=== PATIENT | female | born 2000 | race Caucasian/White ===

== ENCOUNTER 2024-05-26 16:28 | Inpatient (IN) | payer BC ==
--- NOTE | 2024-05-26 17:13 | ED ---
General Adult HPI - General Source: patient, family Mode of arrival: ambulatory Limitations: no limitations <Gus Orourke - Last Filed: 05/27/24 19:06> <Ronel Angel - Last Filed: 06/18/24 23:58> - General Chief complaint: Neuro Symptoms/Deficit Stated complaint: double vision Time Seen by Provider: 05/26/24 17:12 - History of Present Illness Initial comments: 24-year-old female presenting with chief complaint of migraine and double vision. Patient has had a migraine ongoing for about a week. She was seen at [facility] and given a migraine cocktail. This helped diminish the pain but the migraine never completely went away. She was seen by her PCP today who referred her to ophthalmology. Ophthalmology reported that she had increased pressure surrounding her optic nerve and advised that she would be requiring an MRI. Patient has a double vision with both eyes open. She also mitts to blurry visio n. She denies any history of migraines. No fevers or chills. She is having some neck pain on the left side. No URI-like symptoms. (Gus Orourke) - Related Data Home Medications Medication Instructions Recorded Confirmed Cetirizine HCl [Zyrtec] 10 mg PO DAILY 05/27/24 05/27/24 Previous Rx's Medication Instructions Recorded Apixaban [Eliquis Starter Pack 5 - 10 mg PO DIRECTED 30 Days 05/30/24 (for VTE)] #1 each Allergies Allergy/AdvReac Type Severity Reaction Status Date / Time escitalopram [From Lexapro] Allergy Unknown Verified 05/27/24 12:57 Review of Systems ROS Other: All systems not noted in ROS Statement are negative. <Gus Orourke - Last Filed: 05/27/24 19:06> ROS Other: All systems not noted in ROS Statement are negative. <Ronel Angel - Last Filed: 06/18/24 23:58> ROS Statement: Those systems with pertinent positive or pertinent negative responses have been documented in the HPI. Past Medical History Past Medical History: No Reported History History of Any Multi-Drug Resistant Organisms: None Reported Past Surgical History: Tonsillectomy Past Psychological History: No Psychological Hx Reported Smoking Status: Never smoker Past Alcohol Use History: None Reported Past Drug Use History: None Reported <Gus Orourke - Last Filed: 05/27/24 19:06> General Exam Limitations: no limitations General appearance: alert, in no apparent distress Head exam: Present: atraumatic, normocephalic, normal inspection Eye exam: Present: normal appearance, PERRL, EOMI Expanded Visual acuity (R) = 20/: 40 Visual acuity (L) = 20/: 50 IOP (R) in mmH IOP (L) in mmH Neck exam: Present: normal inspection. Absent: meningismus Respiratory exam: Absent: respiratory distress Cardiovascular Exam: Present: regular rate Extremities exam: Present: normal inspection Neurological exam: Present: alert, oriented X3 Expanded Patient oriented to: Present: person, place, time Speech: Present: fluid speech Cranial nerves: EOM's Intact: Normal Eye Response: (4) open spontaneously Motor Response: (6) obeys commands Verbal Response: (5) oriented Chikis Total: 15 Psychiatric exam: Present: normal affect, normal mood Skin exam: Present: warm, dry <Gus Orourke - Last Filed: 05/27/24 19:06> - General Exam Comments Initial Comments: Visual Physical Exam Vital signs reviewed General: Well-appearing, nontoxic, no acute distress. Head: Normocephalic, atraumatic Eyes: PERRLA, EOMI ENT: Airway patent Chest: Nonlabored breathing Skin: No visual rash, normal skin tone Neuro: Alert and oriented 3 Musculoskeletal: No gross abnormalities (Gus Orourke) Course Vital Signs 05/26/24 05/26/24 16:55 18:38 Temperature 98 F Pulse Rate 68 70 Respiratory 18 18 Rate Blood Pressure 138/80 130/69 O2 Sat by Pulse 98 98 Oximetry Medical Decision Making - Lab Data Result diagrams: 05/26/24 18:06 05/26/24 18:06 <Gus Orourke - Last Filed: 05/27/24 19:06> - Lab Data Result diagrams: 05/31/24 06:10 05/31/24 06:10 <Ronel Angel - Last Filed: 06/18/24 23:58> - Medical Decision Making Was pt. sent in by a medical professional or institution (, PA, DINKEY MECHANIC, urgent care, hospital, or senior care...) When possible be specific @ -No Did you speak to anyone other than the patient for history (EMS, parent, family, police, friend...)? What history was obtained from this source @ -No Did you review nursing and triage notes (agree or disagree)? Why? @ -I reviewed and agree with nursing and triage notes Were old charts reviewed (outside hosp., previous admission, EMS record, old EKG, old radiological studies, urgent care reports/EKG's, senior care records)? Report findings @ -No old charts were reviewed Differential Diagnosis (chest pain, altered mental status, abdominal pain women, abdominal pain men, vaginal bleeding, weakness, fever, dyspnea, syncope, he adache, dizziness, GI bleed, back pain, seizure, CVA, palpatations, mental health, musculoskeletal)? @ -MDM Differential Headache: Migraine, tension, cluster, carbon monoxide, central venous thrombosis, pension karma temporal arteritis, acute closure glaucoma, intercranial hemorrhage, mastoiditis, sinusitis, head injury this is not meant to be an all-inclusive list. EKG interpreted by me (3pts min.). @ -As above X-rays interpreted by me (1pt min.). @ -None done CT interpreted by me (1pt min.). @ -CT shows no acute intracranial process U/S interpreted by me (1pt. min.). @ -None done What testing was considered but not performed or refused? (CT, X-rays, U/S, labs)? Why? @ -None What meds were considered but not given or refused? Why? @ -None Did you discuss the management of the patient with other professionals (professionals i.e. , PA, DINKEY MECHANIC, lab, RT, psych nurse, social media marketer, motor vehicle inspector, teacher, commercial escrow officer, behavioral health case manager)? Give summary @ -Spoke with Dr. Millan who accepts admission Was smoking cessation discussed for >3mins.? @ -No Was critical care preformed (if so, how long)? @ -No Were there social determinants of health that impacted care today? How? (Homelessness, low income, unemployed, alcoholism, drug addiction, transportation, low edu. Level, literacy, decrease access to med. care, long term, rehab)? @ -No Was there de-escalation of care discussed even if they declined (Discuss DNR or withdrawal of care, Hospice)? DNR status @ -No What co-morbidities impacted this encounter? (DM, HTN, Smoking, COPD, CAD, Cancer, CVA, ARF, Chemo, Hep., AIDS, mental health diagnosis, sleep apnea, morbid obesity)? @ -None Was patient admitted / discharged? Hospital course, mention meds given and route, prescriptions, significant lab abnormalities, going to OR and other pertinent info. @ -24-year-old female presenting with chief complaint of migraine and a full vi norma. History and physical exam were conducted. No focal neurological deficits. CT shows no acute intracranial process. Patient will be admitted for neurology consult and MRI. She is agreeable with this plan. I discussed this case with my attending Dr. Angel Undiagnosed new problem with uncertain prognosis? @ -No Drug Therapy requiring intensive monitoring for toxicity (Heparin, Nitro, Insu baltazar, Cardizem)? @ -No Were any procedures done? @ -No Diagnosis/symptom? @ -Migraine, double vision Acute, or Chronic, or Acute on Chronic? @ -Acute Uncomplicated (without systemic symptoms) or Complicated (systemic symptoms)? @ -Complicated Side effects of treatment? @ -No Exacerbation, Progression, or Severe Exacerbation? @ -No Poses a threat to life or bodily function? How? (Chest pain, [place], HI, pneumonia, PE, COPD, DKA, ARF, appy, cholecystitis, CVA, Diverticulitis, Homicidal, Suicida l, threat to staff... and all critical care pts) @ -Yes (Gus Orourke) - Lab Data Lab Results 05/26/24 05/26/24 05/27/24 Range/Units 18:06 18:06 09:58 WBC 12.8 H (3.8-10.6) k/uL RBC 4.44 (3.80-5.40) m/uL Hgb 12.3 (11.4-16.0) gm/dL Hct 37.8 (34.0-46.0) % MCV 85.2 (80.0-100.0) fL MCH 27.7 (25.0-35.0) pg MCHC 32.5 (31.0-37.0) g/dL RDW 13.3 (11.5-15.5) % Plt Count 439 (150-450) k/uL MPV 6.5 Neutrophils % 44 % Lymphocytes % 33 % Monocytes % 4 % Eosinophils % 16 % Basophils % 1 % Neutrophils # 5.7 (1.3-7.7) k/uL Lymphocytes # 4.2 (1.0-4.8) k/uL Monocytes # 0.5 (0-1.0) k/uL Eosinophils # 2.0 H (0-0.7) k/uL Basophils # 0.1 (0-0.2) k/uL ESR (0-20) mm/Hr PT (10.0-12.5) sec INR (<1.2) APTT (22.0-30.0) sec Fibrinogen (200-500) mg/dL D-Dimer (<0.60) mg/L FEU Lupus Anticoag aPTT (<43) Sec(s) Lupus Anticoag PTT Mix Sec(s) Dil Hever Viper Venom (<44) Sec(s) LA dRVVT Confirm dRVVT 50:50 Sec(s) Lupus Hexagonal Phase Lupus Anticoag Interp Protein C Antigen (72-160) % Protein S Antigen (50 - 140) % Antithrombin III Ag (80 - 120) % Factor V Leiden Mutat von Willebrand Antigen (52-214) % Sodium 138 (137-145) mmol/L Potassium 4.1 (3.5-5.1) mmol/L Chloride 105 (98-107) mmol/L Carbon Dioxide 28 (22-30) mmol/L Anion Gap 5 mmol/L BUN 12 (7-17) mg/dL Creatinine 0.74 (0.52-1.04) mg/dL Est GFR (CKD-EPI)AfAm >90 (>60 ml/min/1.73 sqM) Est GFR (CKD-EPI)NonAf >90 (>60 ml/min/1.73 sqM) Glucose 126 H (74-99) mg/dL POC Glucose (mg/dL) (70-110) mg/dL POC Glu Nursing Student ID Calcium 9.9 (8.4-10.2) mg/dL Total Bilirubin 0.3 (0.2-1.3) mg/dL AST 26 (14-36) U/L ALT 19 (4-34) U/L Alkaline Phosphatase 83 (38-126) U/L C-Reactive Protein (<1.0) mg/dL Total Protein 7.0 (6.3-8.2) g/dL Albumin 4.1 (3.5-5.0) g/dL Vitamin B12 574.0 (200.0-944.0) pg/mL Homocysteine (4.00-14.00) UMOL/L TSH 1.250 (0.465-4.680) mIU/L Urine Color Urine Appearance (Clear) Urine pH (5.0-8.0) Ur Specific [place] (1.001-1.035) Urine Protein (Negative) Urine Glucose (UA) (Negative) Urine Ketones (Negative) Urine Blood (Negative) Urine Nitrite (Negative) Urine Bilirubin (Negative) Urine Urobilinogen (<2.0) mg/dL Ur Leukocyte Esterase (Negative) Urine RBC (0-5) /hpf Urine WBC (0-5) /hpf Ur Squamous Epith Cells (0-4) /hpf Urine Bacteria (None) /hpf Urine Mucus (None) /hpf Urine HCG, Qual (Not Detectd) Double Strand DNA Ab (Negative) Anti-DNA Ab Interp IU/mL Prothrombin [id number] Mut 05/27/24 05/27/24 05/27/24 Range/Units 09:58 10:45 10:45 WBC (3.8-10.6) k/uL RBC (3.80-5.40) m/uL Hgb (11.4-16.0) gm/dL Hct (34.0-46.0) % MCV (80.0-100.0) fL MCH (25.0-35.0) pg MCHC (31.0-37.0) g/dL RDW (11.5-15.5) % Plt Count (150-450) k/uL MPV Neutrophils % % Lymphocytes % % Monocytes % % Eosinophils % % Basophils % % Neutrophils # (1.3-7.7) k/uL Lymphocytes # (1.0-4.8) k/uL Monocytes # (0-1.0) k/uL Eosinophils # (0-0.7) k/uL Basophils # (0-0.2) k/uL ESR 14 (0-20) mm/Hr PT (10.0-12.5) sec INR (<1.2) APTT (22.0-30.0) sec Fibrinogen (200-500) mg/dL D-Dimer (<0.60) mg/L FEU Lupus Anticoag aPTT (<43) Sec(s) Lupus Anticoag PTT Mix Sec(s) Dil Hever Viper Venom (<44) Sec(s) LA dRVVT Confirm dRVVT 50:50 Sec(s) Lupus Hexagonal Phase Lupus Anticoag Interp Protein C Antigen (72-160) % Protein S Antigen (50 - 140) % Antithrombin III Ag (80 - 120) % Factor V Leiden Mutat von Willebrand Antigen (52-214) % Sodium (137-145) mmol/L Potassium (3.5-5.1) mmol/L Chloride (98-107) mmol/L Carbon Dioxide (22-30) mmol/L Anion Gap mmol/L BUN (7-17) mg/dL Creatinine (0.52-1.04) mg/dL Est GFR (CKD-EPI)AfAm (>60 ml/min/1.73 sqM) Est GFR (CKD-EPI)NonAf (>60 ml/min/1.73 sqM) Glucose (74-99) mg/dL POC Glucose (mg/dL) (70-110) mg/dL POC Glu Nursing Student ID Calcium (8.4-10.2) mg/dL Total Bilirubin (0.2-1.3) mg/dL AST (14-36) U/L ALT (4-34) U/L Alkaline Phosphatase (38-126) U/L C-Reactive Protein (<1.0) mg/dL Total Protein (6.3-8.2) g/dL Albumin (3.5-5.0) g/dL Vitamin B12 (200.0-944.0) pg/mL Homocysteine (4.00-14.00) UMOL/L TSH (0.465-4.680) mIU/L Urine Color Colorless Urine Appearance Clear (Clear) Urine pH 6.0 (5.0-8.0) Ur Specific [place] 1.013 (1.001-1.035) Urine Protein Negative (Negative) Urine Glucose (UA) Negative (Negative) Urine Ketones Negative (Negative) Urine Blood Trace H (Negative) Urine Nitrite Negative (Negative) Urine Bilirubin Negative (Negative) Urine Urobilinogen <2.0 (<2.0) mg/dL Ur Leukocyte Esterase Negative (Negative) Urine RBC 1 (0-5) /hpf Urine WBC 2 (0-5) /hpf Ur Squamous Epith Cells 2 (0-4) /hpf Urine Bacteria Rare H (None) /hpf Urine Mucus Rare H (None) /hpf Urine HCG, Qual Not Detected (Not Detectd) Double Strand DNA Ab (Negative) Anti-DNA Ab Interp IU/mL Prothrombin [id number] Mut 05/29/24 05/29/24 05/29/24 Range/Units 23:45 23:59 23:59 WBC (3.8-10.6) k/uL RBC (3.80-5.40) m/uL Hgb (11.4-16.0) gm/dL Hct (34.0-46.0) % MCV (80.0-100.0) fL MCH (25.0-35.0) pg MCHC (31.0-37.0) g/dL RDW (11.5-15.5) % Plt Count (150-450) k/uL MPV Neutrophils % % Lymphocytes % % Monocytes % % Eosinophils % % Basophils % % Neutrophils # (1.3-7.7) k/uL Lymphocytes # (1.0-4.8) k/uL Monocytes # (0-1.0) k/uL Eosinophils # (0-0.7) k/uL Basophils # (0-0.2) k/uL ESR (0-20) mm/Hr PT (10.0-12.5) sec INR (<1.2) APTT (22.0-30.0) sec Fibrinogen (200-500) mg/dL D-Dimer (<0.60) mg/L FEU Lupus Anticoag aPTT (<43) Sec(s) Lupus Anticoag PTT Mix Sec(s) Dil Hever Viper Venom (<44) Sec(s) LA dRVVT Confirm dRVVT 50:50 Sec(s) Lupus Hexagonal Phase Lupus Anticoag Interp Protein C Antigen 97 (72-160) % Protein S Antigen 79 (50 - 140) % Antithrombin III Ag (80 - 120) % Factor V Leiden Mutat Negative von Willebrand Antigen 211 (52-214) % Sodium (137-145) mmol/L Potassium (3.5-5.1) mmol/L Chloride (98-107) mmol/L Carbon Dioxide (22-30) mmol/L Anion Gap mmol/L BUN (7-17) mg/dL Creatinine (0.52-1.04) mg/dL Est GFR (CKD-EPI)AfAm (>60 ml/min/1.73 sqM) Est GFR (CKD-EPI)NonAf (>60 ml/min/1.73 sqM) Glucose (74-99) mg/dL POC Glucose (mg/dL) 106 (70-110) mg/dL POC Glu Nursing Student ID Sanna Marroquin Calcium (8.4-10.2) mg/dL Total Bilirubin (0.2-1.3) mg/dL AST (14-36) U/L ALT (4-34) U/L Alkaline Phosphatase (38-126) U/L C-Reactive Protein (<1.0) mg/dL Total Protein (6.3-8.2) g/dL Albumin (3.5-5.0) g/dL Vitamin B12 (200.0-944.0) pg/mL Homocysteine (4.00-14.00) UMOL/L TSH (0.465-4.680) mIU/L Urine Color Urine Appearance (Clear) Urine pH (5.0-8.0) Ur Specific [place] (1.001-1.035) Urine Protein (Negative) Urine Glucose (UA) (Negative) Urine Ketones (Negative) Urine Blood (Negative) Urine Nitrite (Negative) Urine Bilirubin (Negative) Urine Urobilinogen (<2.0) mg/dL Ur Leukocyte Esterase (Negative) Urine RBC (0-5) /hpf Urine WBC (0-5) /hpf Ur Squamous Epith Cells (0-4) /hpf Urine Bacteria (None) /hpf Urine Mucus (None) /hpf Urine HCG, Qual (Not Detectd) Double Strand DNA Ab (Negative) Anti-DNA Ab Interp IU/mL Prothrombin [id number] Mut 05/29/24 05/29/24 05/29/24 Range/Units 23:59 23:59 23:59 WBC (3.8-10.6) k/uL RBC (3.80-5.40) m/uL Hgb (11.4-16.0) gm/dL Hct (34.0-46.0) % MCV (80.0-100.0) fL MCH (25.0-35.0) pg MCHC (31.0-37.0) g/dL RDW (11.5-15.5) % Plt Count (150-450) k/uL MPV Neutrophils % % Lymphocytes % % Monocytes % % Eosinophils % % Basophils % % Neutrophils # (1.3-7.7) k/uL Lymphocytes # (1.0-4.8) k/uL Monocytes # (0-1.0) k/uL Eosinophils # (0-0.7) k/uL Basophils # (0-0.2) k/uL ESR (0-20) mm/Hr PT (10.0-12.5) sec INR (<1.2) APTT (22.0-30.0) sec Fibrinogen (200-500) mg/dL D-Dimer (<0.60) mg/L FEU Lupus Anticoag aPTT 34 (<43) Sec(s) Lupus Anticoag PTT Mix NA Sec(s) Dil Hever Viper Venom 35 (<44) Sec(s) LA dRVVT Confirm NA dRVVT 50:50 NA Sec(s) Lupus Hexagonal Phase NA Lupus Anticoag Interp SEE BELOW Protein C Antigen (72-160) % Protein S Antigen (50 - 140) % Antithrombin III Ag (80 - 120) % Factor V Leiden Mutat von Willebrand Antigen (52-214) % Sodium (137-145) mmol/L Potassium (3.5-5.1) mmol/L Chloride (98-107) mmol/L Carbon Dioxide (22-30) mmol/L Anion Gap mmol/L BUN (7-17) mg/dL Creatinine (0.52-1.04) mg/dL Est GFR (CKD-EPI)AfAm (>60 ml/min/1.73 sqM) Est GFR (CKD-EPI)NonAf (>60 ml/min/1.73 sqM) Glucose (74-99) mg/dL POC Glucose (mg/dL) (70-110) mg/dL POC Glu Nursing Student ID Calcium (8.4-10.2) mg/dL Total Bilirubin (0.2-1.3) mg/dL AST (14-36) U/L ALT (4-34) U/L Alkaline Phosphatase (38-126) U/L C-Reactive Protein (<1.0) mg/dL Total Protein (6.3-8.2) g/dL Albumin (3.5-5.0) g/dL Vitamin B12 (200.0-944.0) pg/mL Homocysteine 9.81 (4.00-14.00) UMOL/L TSH (0.465-4.680) mIU/L Urine Color Urine Appearance (Clear) Urine pH (5.0-8.0) Ur Specific [place] (1.001-1.035) Urine Protein (Negative) Urine Glucose (UA) (Negative) Urine Ketones (Negative) Urine Blood (Negative) Urine Nitrite (Negative) Urine Bilirubin (Negative) Urine Urobilinogen (<2.0) mg/dL Ur Leukocyte Esterase (Negative) Urine RBC (0-5) /hpf Urine WBC (0-5) /hpf Ur Squamous Epith Cells (0-4) /hpf Urine Bacteria (None) /hpf Urine Mucus (None) /hpf Urine HCG, Qual (Not Detectd) Double Strand DNA Ab (Negative) Anti-DNA Ab Interp IU/mL Prothrombin [id number] Mut Negative 05/29/24 05/29/24 05/29/24 Range/Units 23:59 23:59 23:59 WBC (3.8-10.6) k/uL RBC (3.80-5.40) m/uL Hgb (11.4-16.0) gm/dL Hct (34.0-46.0) % MCV (80.0-100.0) fL MCH (25.0-35.0) pg MCHC (31.0-37.0) g/dL RDW (11.5-15.5) % Plt Count (150-450) k/uL MPV Neutrophils % % Lymphocytes % % Monocytes % % Eosinophils % % Basophils % % Neutrophils # (1.3-7.7) k/uL Lymphocytes # (1.0-4.8) k/uL Monocytes # (0-1.0) k/uL Eosinophils # (0-0.7) k/uL Basophils # (0-0.2) k/uL ESR (0-20) mm/Hr PT 9.5 L (10.0-12.5) sec INR 0.8 (<1.2) APTT 22.8 (22.0-30.0) sec Fibrinogen 270 (200-500) mg/dL D-Dimer 0.91 H (<0.60) mg/L FEU Lupus Anticoag aPTT (<43) Sec(s) Lupus Anticoag PTT Mix Sec(s) Dil Hever Viper Venom (<44) Sec(s) LA dRVVT Confirm dRVVT 50:50 Sec(s) Lupus Hexagonal Phase Lupus Anticoag Interp Protein C Antigen (72-160) % Protein S Antigen (50 - 140) % Antithrombin III Ag 94 (80 - 120) % Factor V Leiden Mutat von Willebrand Antigen (52-214) % Sodium (137-145) mmol/L Potassium (3.5-5.1) mmol/L Chloride (98-107) mmol/L Carbon Dioxide (22-30) mmol/L Anion Gap mmol/L BUN (7-17) mg/dL Creatinine (0.52-1.04) mg/dL Est GFR (CKD-EPI)AfAm (>60 ml/min/1.73 sqM) Est GFR (CKD-EPI)NonAf (>60 ml/min/1.73 sqM) Glucose (74-99) mg/dL POC Glucose (mg/dL) (70-110) mg/dL POC Glu Nursing Student ID Calcium (8.4-10.2) mg/dL Total Bilirubin (0.2-1.3) mg/dL AST (14-36) U/L ALT (4-34) U/L Alkaline Phosphatase (38-126) U/L C-Reactive Protein (<1.0) mg/dL Total Protein (6.3-8.2) g/dL Albumin (3.5-5.0) g/dL Vitamin B12 (200.0-944.0) pg/mL Homocysteine (4.00-14.00) UMOL/L TSH (0.465-4.680) mIU/L Urine Color Urine Appearance (Clear) Urine pH (5.0-8.0) Ur Specific [place] (1.001-1.035) Urine Protein (Negative) Urine Glucose (UA) (Negative) Urine Ketones (Negative) Urine Blood (Negative) Urine Nitrite (Negative) Urine Bilirubin (Negative) Urine Urobilinogen (<2.0) mg/dL Ur Leukocyte Esterase (Negative) Urine RBC (0-5) /hpf Urine WBC (0-5) /hpf Ur Squamous Epith Cells (0-4) /hpf Urine Bacteria (None) /hpf Urine Mucus (None) /hpf Urine HCG, Qual (Not Detectd) Double Strand DNA Ab Negative (Negative) Anti-DNA Ab Interp <1.0 IU/mL Prothrombin [id number] Mut 05/29/24 Range/Units 23:59 WBC (3.8-10.6) k/uL RBC (3.80-5.40) m/uL Hgb (11.4-16.0) gm/dL Hct (34.0-46.0) % MCV (80.0-100.0) fL MCH (25.0-35.0) pg MCHC (31.0-37.0) g/dL RDW (11.5-15.5) % Plt Count (150-450) k/uL MPV Neutrophils % % Lymphocytes % % Monocytes % % Eosinophils % % Basophils % % Neutrophils # (1.3-7.7) k/uL Lymphocytes # (1.0-4.8) k/uL Monocytes # (0-1.0) k/uL Eosinophils # (0-0.7) k/uL Basophils # (0-0.2) k/uL ESR (0-20) mm/Hr PT (10.0-12.5) sec INR (<1.2) APTT (22.0-30.0) sec Fibrinogen (200-500) mg/dL D-Dimer (<0.60) mg/L FEU Lupus Anticoag aPTT (<43) Sec(s) Lupus Anticoag PTT Mix Sec(s) Dil Hever Viper Venom (<44) Sec(s) LA dRVVT Confirm dRVVT 50:50 Sec(s) Lupus Hexagonal Phase Lupus Anticoag Interp Protein C Antigen (72-160) % Protein S Antigen (50 - 140) % Antithrombin III Ag (80 - 120) % Factor V Leiden Mutat von Willebrand Antigen (52-214) % Sodium (137-145) mmol/L Potassium (3.5-5.1) mmol/L Chloride (98-107) mmol/L Carbon Dioxide (22-30) mmol/L Anion Gap mmol/L BUN (7-17) mg/dL Creatinine (0.52-1.04) mg/dL Est GFR (CKD-EPI)AfAm (>60 ml/min/1.73 sqM) Est GFR (CKD-EPI)NonAf (>60 ml/min/1.73 sqM) Glucose (74-99) mg/dL POC Glucose (mg/dL) (70-110) mg/dL POC Glu Nursing Student ID Calcium (8.4-10.2) mg/dL Total Bilirubin (0.2-1.3) mg/dL AST (14-36) U/L ALT (4-34) U/L Alkaline Phosphatase (38-126) U/L C-Reactive Protein <0.5 (<1.0) mg/dL Total Protein (6.3-8.2) g/dL Albumin (3.5-5.0) g/dL Vitamin B12 (200.0-944.0) pg/mL Homocysteine (4.00-14.00) UMOL/L TSH (0.465-4.680) mIU/L Urine Color Urine Appearance (Clear) Urine pH (5.0-8.0) Ur Specific [place] (1.001-1.035) Urine Protein (Negative) Urine Glucose (UA) (Negative) Urine Ketones (Negative) Urine Blood (Negative) Urine Nitrite (Negative) Urine Bilirubin (Negative) Urine Urobilinogen (<2.0) mg/dL Ur Leukocyte Esterase (Negative) Urine RBC (0-5) /hpf Urine WBC (0-5) /hpf Ur Squamous Epith Cells (0-4) /hpf Urine Bacteria (None) /hpf Urine Mucus (None) /hpf Urine HCG, Qual (Not Detectd) Double Strand DNA Ab (Negative) Anti-DNA Ab Interp IU/mL Prothrombin [id number] Mut Disposition Time of Disposition: 20:45 <Gus Orourke - Last Filed: 05/27/24 19:06> <Ronel Angel - Last Filed: 06/18/24 23:58> Clinical Impression: Migraine, Double vision with both eyes open Disposition: ADMITTED IP TO THIS [facility] Condition: Fair
--- NOTE | 2024-05-26 17:16 | CT ---
EXAMINATION TYPE: CT brain wo con CT DLP: 1051.4 mGycm, Automated exposure control for dose reduction was used. DATE OF EXAM: 05/26/2024 5:11 PM COMPARISON: None. CLINICAL INDICATION: Female, 24 years old with history of double vision,, DOUBLE VISION TECHNIQUE: Brain: Axial CT images of the brain were obtained with coronal and sagittal reformats created and rev iewed. Contrast used: None. Oral contrast used: None. FINDINGS: Brain: Extra-axial spaces: No abnormal extra-axial fluid collections. Ventricular system: Within normal limits Cerebral parenchyma: No acute intraparenchymal hemorrhage or mass effect. The de la cruz-white junction is well differentiated. Cerebellum: Unremarkable. Mass effect: No evidence of midline shift. Intracranial vasculature: unremarkable Soft tissues: Normal. Calvarium/osseous structures: No depressed skull fracture. Paranasal sinuses and mastoid air cells: Mild scattered paranasal sinus disease. Visualized orbits: Orbital contents are intact. Optic nerves are relatively symmetric: Noncontrast CT imaging. IMPRESSION: No acute intracranial process.
[2024-05-26 18:17] LABS: Basophils # (A) 0.1 k/uL (0-0.2); Basophils % (A) 1 %; Eosinophils % (A) 16 %; HCT 37.8 % (34.0-46.0); HGB 12.3 gm/dL (11.4-16.0); Lymphocytes # (A) 4.2 k/uL (1.0-4.8); Lymphocytes % (A) 33 %; MCH 27.7 pg (25.0-35.0); MCHC 32.5 g/dL (31.0-37.0); MCV 85.2 fL (80.0-100.0); Mean Platelet Volume 6.5; Monocytes # (A) 0.5 k/uL (0-1.0); Monocytes % (A) 4 %; Neutrophils # (A) 5.7 k/uL (1.3-7.7); Neutrophils % (A) 44 %; Platelet Count 439 k/uL (150-450); RBC 4.44 m/uL (3.80-5.40); RDW 13.3 % (11.5-15.5); WBC 12.8 k/uL (3.8-10.6)
[2024-05-26 18:29] LABS: Chloride 105 mmol/L (98-107)
[2024-05-26 18:31] LABS: ALT 19 U/L (4-34); AST 26 U/L (14-36); African American GFR (CKD) >90 (>60 ml/min/1.73 sqM); Albumin 4.1 g/dL (3.5-5.0); Alkaline Phosphatase 83 U/L (38-126); Anion Gap 5 mmol/L; Blood Urea Nitrogen 12 mg/dL (7-17); Calcium 9.9 mg/dL (8.4-10.2); Carbon Dioxide 28 mmol/L (22-30); Glucose 126 mg/dL (74-99); Non-African American GFR(CKD) >90 (>60 ml/min/1.73 sqM); Potassium 4.1 mmol/L (3.5-5.1); Sodium 138 mmol/L (137-145); Total Bilirubin 0.3 mg/dL (0.2-1.3)
[2024-05-26] MEDS ORDERED: KETOROLAC 15 MG/ML 1 ML VIAL IVP PRN (20:46)
[2024-05-26] MEDS ORDERED: MORPHINE SULFATE 4 MG/ML SYRINGE IVP PRN (20:46)
[2024-05-26] MEDS ORDERED: ONDANSETRON 4 MG/2 ML VIAL IVP PRN (21:25)
[2024-05-26] MEDS ORDERED: NALOXONE 0.4 MG/ML 1 ML VIAL IV PRN (21:25)
[2024-05-26] MEDS: ACETAMINOPHEN TAB 325 MG TAB PO PRN (22:04)
[2024-05-26] MEDS: SODIUM CHLORIDE 0.9% 1,000 ML IV SCH (22:05)
[2024-05-27] MEDS: methylPREDNISolone SOD SUCCIN 500 MG in SODIUM CHLORIDE 0.9% 100 ML IVPB STA (11:25)
[2024-05-27 11:28] LABS: Appearance,Urine Clear (Clear); Bacteria,Urine Rare /hpf; Bilirubin,Urine Negative (Negative); Blood,Urine Trace (Negative); Color,Urine Colorless; Glucose,Urine (UA) Negative (Negative); Ketones,Urine Negative (Negative); Leukocyte Esterase,Urine Negative (Negative); Mucus,Urine Rare /hpf; Nitrite,Urine Negative (Negative); Protein,Urine Negative (Negative); RBC,Urine 1 /hpf (0-5); Specific Gravity,Urine 1.013 (1.001-1.035); Squamous Epithelial Cell,Urine 2 /hpf (0-4); Urobilinogen,Urine <2.0 mg/dL (<2.0); WBC,Urine 2 /hpf (0-5)
--- NOTE | 2024-05-27 11:57 | P.CNNES ---
History of Present Illness Consult date: 05/27/24 Requesting physician: Gus Orourke Reason for Consult: migraine, vision disturbance History of Present Illness: This is a 24-year-old woman who presented emergency department because of headache, visual disturbance. She stated that she has been having headache neck pain for the last 10 days and it started on the left base of the neck and it radiated up to the left side of her head into the forehead bilaterally. She also feels her ears are muffled during that time. She feels the headache is over the now with the frontal temporal region and feels a throbbing headache. She feels the headache at 7/10 and is worse with standing and it has been constant and it is alleviated with Toradol. Denies any photophobia. Mild photophobia. Denies any vomiting or nausea. Since 05/21/2024 she has been having diplopia and she feels [id number] and she has to squint either eye to help. She also feels her vision is blurry. She was evaluated at [facility] on 05/16/2024 for her headache and they felt was migraine and they gave her the migraine cocktail which deviated slightly with a headache but did not resolve it . She did not have imaging at their facility. She was told she had urinary tract infection and she was given Bactrim. Denies any focal weakness, numbness, any difficulty getting words out or swallowing. Patient was evaluated by machine records units supervisor and she was notified she had increased pressure surrounding her optic nerve and advised her to pursue MRI within a week. Patient decided to come to hospital and get it addressed earlier. Denies any history of migraines in the past. Denies any strokes or history of Lyme disease. She stated that her mother has a history of migraine. There is no young family history of strokes or multiple sclerosis that she knows. She denies tobacco use or illicit drug use or any significant alcohol use. Denies any sick contacts, rash, any recent travel. Some of the workup during this hospital visit consisted of: Is afebrile White blood cells 12.8K Serum glucose is 126 otherwise the rest of the comprehensive metabolic panel is unremarkable Urinalysis does not appear she has underlying urinary tract fraction CT head is reported as no acute intracranial process. I personally reviewed the CT and agree with the report. Next Review of Systems The positive and negative as per HPI. Past Medical History Past Medical History: No Reported History History of Any Multi-Drug Resistant Organisms: None Reported Past Surgical History: Tonsillectomy Past Anesthesia/Blood Transfusion Reactions: No Reported Reaction Past Psychological History: No Psychological Hx Reported Smoking Status: Never smoker Past Alcohol Use History: None Reported Past Drug Use History: None Reported Medications and Allergies Allergies Allergy/AdvReac Type Severity Reaction Status Date / Time escitalopram [From Lexapro] Allergy Unknown Verified 05/26/24 17:00 Physical Examination - Vital Signs Vital Signs: Vital Signs Temp Pulse Pulse Resp BP BP Pulse Ox 05/27/24 07:00 97.9 F 70 16 112/70 98 05/27/24 00:56 97.7 F 96 16 130/80 98 05/26/24 22:51 98.2 F 70 16 121/59 98 05/26/24 18:38 70 18 130/69 98 05/26/24 16:55 98 F 68 18 138/80 98 Intake and Output 05/26/24 05/27/24 05/27/24 22:59 06:59 14:59 Intake Total 118 Balance 118 Intake: Oral 118 Other: Voiding Method Toilet # Voids 2 Weight 77.111 kg 77.111 kg GENERAL: The patient is lying in bed and is not in acute distress. NEUROLOGICAL: Higher mental function: The patient is awake, alert, oriented to self, place and time. Patient is following commands. No aphasia and no neglect. Cranial nerves: The pupils are round, equal and reactive to light and accommodation. Visual lopez are full to confrontation throughout. Has horizontal diplopia but improves when covers either eyes. Extraocular movement is intact no nystagmus is noted. Facial sensation is normal to touch throughout. The facial strength is normal throughout. Hearing is normal bilaterally to hand rub. Tongue is midline and moved [id number] without any difficulty. No dysarthria is noted. Shoulder shrug is normal bilaterally. Motor: Gait is normal. The strength is 5 over 5 throughout. Normal tone and bulk. Cerebellum: Normal finger to nose heel to chin bilaterally. Sensation: Sensation is normal to touch throughout. Reflexes (right/left): 2+ throughout Plantars are downgoing bilaterally. Results - Laboratory Findings CBC and BMP: 05/26/24 18:06 05/26/24 18:06 Abnormal Lab Findings: Abnormal Labs 0905/26/24 05/27/24 18:06 18:06 10:45 WBC 12.8 H Eosinophils # 2.0 H Glucose 126 H Urine Blood Trace H Urine Bacteria Rare H Urine Mucus Rare H Assessment and Plan Assessment: This is a 24-year-old woman who present emergency department because of head ache, left neck pain, visual disturbance consisting of blurry vision and diplopia which is horizontal and her symptoms has been going on for the past 10 days. Initially she was at outside facility on 05/16/2024 and was told she had migraine and was given cocktail as well as she was told she had acute UTI and was given Bactrim. But her symptoms worsened since then and she was evaluated by the machine records units supervisor as an outpatient and she was notified she had increased pressure surrounding her optic nerve and advised her pain MRI within a week. Cephalgia, visual disturbance consisting of horizontal diplopia with blurry vision and her ophthalmology exam as an outpatient revealed increased pressure surrounding her optic nerve: Rule out demyelinating disease such as multiple sclerosis especially patient has risk factors being young, female, and [place]. Will rule out other central process Underlying history of sinus disease Plan: Ordered MRI of the brain, orbit and cervical spine and was notified this will not be done until Wednesday. Depending on the images will consider lumbar puncture afterwards TSH, vitamin B12, ESR I gave the patient Solu-Medrol 500 mg once for now. Stated while she was at [facility] on 05/16/2024 she was given 1 Solu-Medrol her migraine cocktail which improved slightly Patient is on morphine 4 mg as needed started by the ED team and she is on [place] as needed. Will defer the rest of the medical management to primary and other specialist I discussed with the patient and her family members at bedside as well as her nurse Thank for the consult Time with Patient: Greater than 30
--- NOTE | 2024-05-27 12:03 | P.HPIM ---
History of Present Illness H&P Date: 05/27/24 History of present illness: This 24-year-old female with no significant past medical history who presented to ER with a complaint of headache and double vision. Patient stated that she is having headache for about last 10 days and it started on the left side of back of the neck and radiated up to the left side of her head into the forehead bilaterally. Patient also felt muffled hearing. Patient currently still having throbbing headache, 7 x 10 intensity, worse with standing and constant, relieved with Toradol. Patient reported that she started to have double vision about 1 week ago which she noticed worsened after p.o. Toradol. Patient denied any visual disturbances with 1 eye closed. Patient was evaluated at [facility] on 05/16/2024 for headache and was felt to have migraine was treated with migraine cocktail which helped with the headache but did not resolve it completely. Patient was given Bactrim for UTI at that time, did not have any imaging. Patient denied any focal numbness, weakness, trouble speaking or swallowing. Patient then went to an urgent care, was advised to see an storage solutions architect, patient was told by the storage solutions architect that she had increased pressure surrounding the optic nerve and was advised to get an MRI within a week, patient decided to come to the hospital to get it addressed. Patient denied any history of migraines, denied any history of stroke, Lyme disease, history of MS, family history of early stroke or MS. Patient is afebrile, heart rate 70, respiratory rate 16, blood pressure 112/70, saturating 98% on room air. WBCs 12.8, hemoglobin 12.3, platelet 439. BMP unremarkable. LFTs unremarkable. TSH normal. UA unremarkable. REVIEW OF SYSTEMS: CONSTITUTIONAL: No fever, no malaise, no fatigue. HEENT: Complains of headache, double vision improved with 1 eye closed. CARDIOVASCULAR: No chest pain, orthopnea, PND, no palpitations, no syncope. PULMONARY: No shortness of breath, no cough, no hemoptysis. GASTROINTESTINAL: No diarrhea, no nausea, no vomiting, no abdominal pain. NEUROLOGICAL: No headaches, no weakness, no numbness. HEMATOLOGICAL: Denies any bleeding or petechiae. GENITOURINARY: Denies any burning micturition, frequency, or urgency. MUSCULOSKELETAL/RHEUMATOLOGICAL: Denies any joint pain, swelling, or any muscle pain. ENDOCRINE: Denies any polyuria or polydipsia. The rest of the 14-point review of systems is negative. PHYSICAL EXAMINATION: GENERAL: The patient is A&O x3, NAD HEENT: EOMI, Sclerae anicteric, Moist Mucous membranes Neck: Supple, Non tender, No JVD PULMONARY: Equal breath souds B/L, No wheezing, No crackles. CARDIOVASCULAR: S1, S2 present. No murmurs, rubs, or gallops. ABDOMEN: Soft, nontender, nondistended, normoactive bowel sounds. No guarding or rebound tenderness. MUSCULOSKELETAL: No edema, No cyanosis. No clubbing. Normal ROM. Intact peripheral pulses. EXTREMITIES: No cyanosis, clubbing, or pedal edema. NEUROLOGICAL: CN 2-12 grossly intact. No FND Assessment and plan: Headache: Diplopia: Presented with headache for 10 days, double vision for 1 week Advised by the ophthalmology to get an MRI within 1 week. Monitor with neurochecks. TSH unremarkable. Check vitamin B12, ESR per neurology. Started on Solu-Medrol 500 mg once per neurology Neurology recommended MRI of the brain and orbit and cervical spineanticipated to be done on Wednesday. Pain controlTylenol, [place], morphine. DVT prophylaxis SCD Monitor vital signs and labs Continue telemetry monitoring Labs and medication were reviewed. Continue same treatment. Resume home medication. Further recommendations as per clinical course of the patient Dictation was produced using [employer] dictation software. please excuse any grammatical, word or spelling errors. Past Medical History Past Medical History: No Reported History History of Any Multi-Drug Resistant Organisms: None Reported Past Surgical History: Tonsillectomy Past Anesthesia/Blood Transfusion Reactions: No Reported Reaction Past Psychological History: No Psychological Hx Reported Smoking Status: Never smoker Past Alcohol Use History: None Reported Past Drug Use History: None Reported Medications and Allergies Allergies Allergy/AdvReac Type Severity Reaction Status Date / Time escitalopram [From Lexapro] Allergy Unknown Verified 05/26/24 17:00 Physical Exam Vitals: Vital Signs Temp Pulse Pulse Resp BP BP Pulse Ox 05/27/24 07:00 97.9 F 70 16 112/70 98 05/27/24 00:56 97.7 F 96 16 130/80 98 05/26/24 22:51 98.2 F 70 16 121/59 98 05/26/24 18:38 70 18 130/69 98 05/26/24 16:55 98 F 68 18 138/80 98 Intake and Output 05/26/24 05/27/24 05/27/24 22:59 06:59 14:59 Intake Total 118 Balance 118 Intake: Oral 118 Other: Voiding Method Toilet # Voids 2 Weight 77.111 kg 77.111 kg Results CBC & Chem 7: 05/26/24 18:06 05/26/24 18:06 Labs: Abnormal Lab Results - Last 24 Hours (Table) 05/26/24 05/26/24 05/27/24 Range/Units 18:06 18:06 10:45 WBC 12.8 H (3.8-10.6) k/uL Eosinophils # 2.0 H (0-0.7) k/uL Glucose 126 H (74-99) mg/dL Urine Blood Trace H (Negative) Urine Bacteria Rare H (None) /hpf Urine Mucus Rare H (None) /hpf
[2024-05-28] MEDS: HYDROcodone/APAP 5-325MG 1 EACH TAB PO PRN (07:56)
[2024-05-28] MEDS: IBUPROFEN 400 MG TAB PO STA (11:10)
--- NOTE | 2024-05-28 12:20 | P.PN ---
Subjective Progress Note Date: 05/28/24 I am following up with the patient and patient states she continues to have diplopia and she feels the headache is slightly better today compared to yesterday after Solu-Medrol. She states the headache is 4-5 out of 10. Otherwise denies any new neurological issues. Still pending for the rest of the workup such as MRI Objective - Vital Signs Vital signs: Vital Signs Temp 98.3 F 05/28/24 07:20 Pulse 75 05/28/24 07:20 Resp 17 05/28/24 07:20 BP 123/68 05/28/24 07:20 Pulse Ox 98 05/28/24 07:20 FiO2 Intake & Output 05/27/24 05/28/24 05/28/24 18:59 06:59 18:59 Intake Total 118 540 236 Output Total 400 Balance 118 140 236 Intake: Oral 118 540 236 Output: Urine 400 Other: Voiding Method Toilet # Voids 4 1 1 # Bowel Movements 0 - Exam GENERAL: The patient is lying in bed and is not in acute distress. NEUROLOGICAL: Higher mental function: The patient is awake, alert, oriented to self, place and time. Patient is following commands. No aphasia and no neglect. Cranial nerves: The pupils are round, equal and reactive to light and accommodation. Visual lopez are full to confrontation throughout. Has horizon lisa diplopia but improves when covers either eyes. Extraocular movement is intact no nystagmus is noted. Facial sensation is normal to touch throughout. The facial strength is normal throughout. Hearing is normal bilaterally to hand rub. Tongue is midline and moved [id number] without any difficulty. No dysarthria is noted. Shoulder shrug is normal bilaterally. Motor: Gait is normal. The strength is 5 over 5 throughout. Normal tone and bulk. Cerebellum: Normal finger to nose heel to chin bilaterally. Sensation: Sensation is normal to touch throughout. Reflexes (right/left): 2+ throughout Plantars are downgoing bilaterally. Some of the workup during this hospital visit consisted of: Is afebrile White blood cells 12.8K ESR is 14 TSH is 1.250 Serum glucose is 126 otherwise the rest of the comprehensive metabolic panel is unremarkable Urinalysis does not appear she has underlying urinary tract fraction CT head is reported as no acute intracranial process. I personally reviewed the CT and agree with the report. - Labs CBC & Chem 7: 05/26/24 18:06 05/26/24 18:06 Assessment and Plan Assessment: This is a 24-year-old woman who present emergency department because of headache, left neck pain, visual disturbance consisting of blurry vision and diplopia which is horizontal and her symptoms has been going on for the past 10 days. Initially she was at outside facility on 05/16/2024 and was told she had migraine and was given cocktail as well as she was told she had acute UTI and was given Bactrim. But her symptoms worsened since then and she was evaluated by the rail engineer as an outpatient and she was notified she had increased pressure surrounding her optic nerve and advised her pain MRI within a week. Cephalgia, visual disturbance consisting of horizontal diplopia with blurry vision and her ophthalmology exam as an outpatient revealed increased pressure surrounding her optic nerve: Rule out demyelinating disease such as multiple sclerosis especially patient has risk factors being young, female, and [place]. Will rule out other central process Underlying history of sinus disease Plan: Pending MRI of the brain, orbit and cervical spine and was notified this will not be done until Wednesday. Depending on the images will consider lumbar puncture afterwards Pending TSH, vitamin B12 level. I gave the patient Solu-Medrol 500 mg once for now yesterday. Stated while she was at [facility] on 05/16/2024 she was given 1 Solu-Medrol her migraine cocktail which improved slightly. Stated she will hold off and any further steroids until images and workup comes back. Patient is on morphine 4 mg as needed started by the ED team and she is on [place] as needed. Will defer the rest of the medical management to primary and other specialist I discussed with the patient and primary attending. Time with Patient: Less than 30
[2024-05-28] MEDS: KETOROLAC 15 MG/ML 1 ML VIAL IVP PRN (12:59)
--- NOTE | 2024-05-28 13:38 | P.PN ---
Subjective Progress Note Date: 05/28/24 Interval History: This 24-year-old female with no significant past medical history who presented to ER with a complaint of headache and double vision. Patient stated that she is having headache for about last 10 days and it started on the left side of back of the neck and radiated up to the left side of her head into the forehead bilaterally. Patient also felt muffled hearing. Patient currently still having throbbing headache, 7 x 10 intensity, worse with standing and constant, relieved with Toradol. Patient reported that she started to have double vision about 1 week ago which she noticed worsened after p.o. Toradol. Patient denied any visual disturbances with 1 eye closed. Patient was evaluated at [facility] on 05/16/2024 for headache and was felt to have migraine was treated with migraine cocktail which helped with the headache but did not resolve it completely. Patient was given Bactrim for UTI at that time, did not have any imaging. Patient denied any focal numbness, weakness, trouble speaking or swallowing. Patient then went to an urgent care, was advised to see an op hthalmologist, patient was told by the hall manager that she had increased pressure surrounding the optic nerve and was advised to get an MRI within a week, patient decided to come to the hospital to get it addressed. Patient denied any history of migraines, denied any history of stroke, Lyme disease, history of MS, family history of early stroke or MS. Patient is afebrile, heart rate 70, respiratory rate 16, blood pressure 112/70, saturating 98% on room air. WBCs 12.8, hemoglobin 12.3, platelet 439. BMP unremarkable. LFTs unremarkable. TSH normal. UA unremarkable. 05/28/2024-patient was seen and examined today. Patient complained of headache, still has double vision, vision improve with 1 eye closed. Neurology following. Headache better controlled with Toradol, restarted. Awaiting MRI brain, orbit and cervical spine on Wednesday, discussed with neurology, concern for MS. Assessment and plan: Headache: Diplopia: Presented with headache for 10 days, double vision for 1 week Advised by the ophthalmology to get an MRI within 1 week. Monitor with neurochecks. TSH unremarkable. Check vitamin B12, ESR per neurology. Started on Solu-Medrol 500 mg once per neurology 05/27 Neurology recommended MRI of the brain and orbit and cervical spineanticipated to be done on Wednesday. Pain controlTylenol, [place], morphine. Toradol. DVT prophylaxis SCD Monitor vital signs and labs Continue telemetry monitoring Labs and medication were reviewed. Continue same treatment. Resume home medication. Further recommendations as per clinical course of the patient PHYSICAL EXAMINATION: GENERAL: The patient is A&O x3, NAD HEENT: EOMI, Sclerae anicteric, Moist Mucous membranes Neck: Supple, Non tender, No JVD PULMONARY: Equal breath souds B/L, No wheezing, No crackles. CARDIOVASCULAR: S1, S2 present. No murmurs, rubs, or gallops. ABDOMEN: Soft, nontender, nondistended, normoactive bowel sounds. No guarding or rebound tenderness. MUSCULOSKELETAL: No edema, No cyanosis. No clubbing. Normal ROM. Intact peripheral pulses. EXTREMITIES: No cyanosis, clubbing, or pedal edema. NEUROLOGICAL: CN 2-12 grossly intact. No FND Skin: No Rash REVIEW OF SYSTEMS: CONSTITUTIONAL: No fever or chills. CARDIOVASCULAR: No chest pain, palpitations or syncope. PULMONARY: No shortness of breath, no cough, sore throat. GASTROINTESTINAL: No nausea, vomiting, diarrhea, abdominal pain. : No Dysuria, urgency, frequency. Extremities: No edema. NEUROLOGICAL: Complains of headache, diplopia. Dictation was produced using [employer] dictation software. please excuse any grammatical, word or spelling errors. Objective - Vital Signs Vital signs: Vital Signs Temp 98.3 F 05/28/24 07:20 Pulse 75 05/28/24 07:20 Resp 17 05/28/24 07:20 BP 123/68 05/28/24 07:20 Pulse Ox 98 05/28/24 07:20 FiO2 Intake & Output 05/27/24 05/28/24 05/28/24 18:59 06:59 18:59 Intake Total 118 540 236 Output Total 400 Balance 118 140 236 Intake: Oral 118 540 236 Output: Urine 400 Other: Voiding Method Toilet # Voids 4 1 1 # Bowel Movements 0 - Labs CBC & Chem 7: 05/26/24 18:06 05/26/24 18:06
--- NOTE | 2024-05-29 14:06 | P.PN ---
Subjective Progress Note Date: 05/29/24 24-year-old female with no significant past medical history who presented to ER with a complaint of headache and double vision. Patient stated that she is having headache for about last 10 days and it started on the left side of back of the neck and radiated up to the left side of her head into the forehead bilaterally. Patient also felt muffled hearing. Patient currently still having throbbing headache, 7 x 10 intensity, worse with standing and constant, relieved with Toradol. Patient reported that she started to have double vision about 1 week ago which she noticed worsened after p.o. Toradol. Patient denied any visual disturbances with 1 eye closed. Patient was evaluated at [facility] on 05/16/2024 for headache and was felt to have migraine was treated with migraine cocktail which helped with the headache but did not resolve it completely. Patient was given Bactrim for UTI at that time, did not have any imaging. Patient denied any focal numbness, weakness, trouble speaking or swallowing. Patient then went to an urgent care, was advised to see an english composition instructor, patient was told by the english composition instructor that she had increased pressure surrounding the optic nerve and was advised to get an MRI within a week, patient decided to come to the hospital to get it addressed. Patient denied any history of migraines, denied any history of stroke, Lyme disease, history of MS, family history of early stroke or MS. Patient is afebrile, heart rate 70, respiratory rate 16, blood pressure 112/70, saturating 98% on room air. WBCs 12.8, hemoglobin 12.3, platelet 439. BMP unremarkable. LFTs unremarkable. TSH normal. UA unremarkable. 05/28/2024-patient was seen and examined today. Patient complained of headache, still has double vision, vision improve with 1 eye closed. Neurology following. Headache better controlled with Toradol, restarted. Awaiting MRI brain, orbit and cervical spine on Wednesday, discussed with neurology, concern for MS. 05/29 -patient seen at bedside today. Patient complained of headache, continues to have double vision, vision improved with 1 eye closed. Neurology consult completed on 05/27, and they continue to follow. MRI of the brain, orbit and cervical spine to be completed today. Per neurology consultation, considering lumbar puncture following results of MRI. Patient states that her headaches have improved considerably, however she still has been suffering from double vision and blurry vision. Continues to be alleviated by closing one of her eyes, however she states there is no indication related to that. She states that she has no known family history of multiple sclerosis. She states that other than her vision problems at the moment she feels well and has no complaints. REVIEW OF SYSTEMS: CONSTITUTIONAL: No fever, no malaise. CARDIOVASCULAR: No chest pain, no palpitations, no syncope. PULMONARY: No shortness of breath, no cough. GASTROINTESTINAL: No diarrhea, no nausea, no vomiting, no abdominal pain. NEUROLOGICAL: No headaches, no weakness. PHYSICAL EXAMINATION: GENERAL: The patient is alert and oriented x3, not in any acute distress. Well developed, well nourished. HEENT: Pupils are round and equally reacting to light. EOMI. No scleral icterus. No conjunctival pallor. Normocephalic, atraumatic. No pharyngeal erythema. No thyromegaly. CARDIOVASCULAR: S1 and S2 present. No murmurs, rubs, or gallops. PULMONARY: Chest is clear to auscultation, no wheezing or crackles. ABDOMEN: Soft, nontender, nondistended, normoactive bowel sounds. No palpable organomegaly. MUSCULOSKELETAL: No joint swelling or deformity. EXTREMITIES: No cyanosis, clubbing, or pedal edema. NEUROLOGICAL: Gross neurological examination did not reveal any focal deficits. Awake, alert, oriented x3. SKIN: No rashes. Assessment and plan 1. Headache Presented with headache for 10 days, double vision for 1 week She is continue to have her pain controlled with Toradol. Additionally has morphine and Breaks available as needed. Neurology recommend MRI of the brain, orbit and cervical spine to be completed today (05/29) 2. Diplopia and blurry vision possibly secondary to multiple sclerosis Presented with headache for 10 days, double vision for 1 week; was referred to an english composition instructor by her PCP Care Nurse Rn stated, as per the patient, that the patient had inflammation of the optic nerve Advised by the ophthalmology to get an MRI within 1 week. Monitor with neurochecks. TSH unremarkable. Check vitamin B12, ESR per neurology; both within normal limits Started on Solu-Medrol 500 mg once per neurology 05/27 Neurology recommended MRI of the brain, orbit and cervical spine to be completed today (05/29) Pain controlTylenol, Breaks, Toradol as needed Labs and medication were reviewed. Continue with symptomatic treatment. Dictation was produced using Ban[employer] dictation software. please excuse any grammatical, word or spelling errors. Dr. Maik MD I have performed a history and physical examination and medical decision making of this patient, discussed the same with the the resident, and agree with the assessment and plan as written. I performed brief physical exam. Objective - Vital Signs Vital signs: Vital Signs Temp 97.9 F 05/29/24 07:00 Pulse 55 L 05/29/24 07:00 Resp 16 05/29/24 07:00 BP 123/70 05/29/24 07:00 Pulse Ox 99 05/29/24 07:00 FiO2 Intake & Output 05/28/24 05/29/24 05/29/24 18:59 06:59 18:59 Intake Total 476 Balance 476 Intake: Oral 476 Other: Voiding Method Toilet Toilet # Voids 2 1 # Bowel Movements 0 - Labs CBC & Chem 7: 05/30/24 05:15 05/30/24 05:15
--- NOTE | 2024-05-29 16:09 | P.PN ---
Subjective Progress Note Date: 05/29/24 I am following up with the patient and she states her headache is improving and today it is 3-4 out of 10 and it is over the frontal region, temporal and the base of her skull upper neck region. Again she states her headache is improving compared to her initial presentation. She continues to have double vision. She feels her vision is blurry when she looks far out and denies any nausea, vomiting, focal weakness, numbness. States she is on control pills but does not recall the name of it. Denies any neck manipulation by chiropractor or falls. Denies any prior neurological issues that she remembers. She states she does not know her father's family history regarding her mother there is no family history of multiple sclerosis or strokes. Denies any young family history of hypercoagulable. Objective - Vital Signs Vital signs: Vital Signs Temp 98.3 F 05/29/24 15:00 Pulse 91 05/29/24 15:00 Resp 16 05/29/24 15:00 BP 126/76 05/29/24 15:00 Pulse Ox 99 05/29/24 15:00 FiO2 Intake & Output 05/28/24 05/29/24 05/29/24 18:59 06:59 18:59 Intake Total 476 236 Balance 476 236 Intake: Oral 476 236 Other: Voiding Method Toilet Toilet Toilet # Voids 2 1 3 # Bowel Movements 0 - Exam GENERAL: The patient is lying in bed and is not in acute distress. NEUROLOGICAL: Higher mental function: The patient is awake, alert, oriented to self, place and time. Patient is following commands. No aphasia and no neglect. Cranial nerves: The pupils are round, equal and reactive to light and accommodation. Primary gaze is left eye is mildly deviated medially and slightly up. Visual lopez are full to confrontation throughout. Has horizontal diplopia but improves when covers either eyes. Extraocular movement is intact no nystagmus is noted. Facial sensation is normal to touch throughout. The facial strength is normal throughout. Hearing is normal bilaterally to hand rub. Tongue is midline and moved [id number] without any difficulty. No dysarthria is noted. Shoulder shrug is normal bilaterally. Motor: Gait is normal. The strength is 5 over 5 throughout. Normal tone and bulk. Cerebellum: Normal finger to nose heel to chin bilaterally. Sensation: Sensation is normal to touch throughout. Reflexes (right/left): 2+ throughout Plantars are downgoing bilaterally. Some of the workup during this hospital visit consisted of: Is afebrile White blood cells 12.8K ESR is 14 TSH is 1.250 Vitamin B12: 574 Urine HCG is not detected. Serum glucose is 126 otherwise the rest of the comprehensive metabolic panel is unremarkable Urinalysis does not appear she has underlying urinary tract fraction CT head is reported as no acute intracranial process. I personally reviewed the CT and agree with the report. - Labs CBC & Chem 7: 05/26/24 18:06 05/26/24 18:06 Assessment and Plan Assessment: This is a 24-year-old woman who present emergency department because of headache, left neck pain, visual disturbance consisting of blurry vision and diplopia which is horizontal and her symptoms has been going on for the past 10 days. Initially she was at outside facility on 05/16/2024 and was told she had migraine and was given cocktail as well as she was told she had acute UTI and was given Bactrim. But her symptoms worsened since then and she was evaluated by the lace paper machine operator as an outpatient and she was notified she had increased pressure surrounding her optic nerve and advised her pain MRI within a week. Cephalgia, visual disturbance consisting of horizontal diplopia with blurry vision and her ophthalmology exam as an outpatient revealed increased pressure surrounding her optic nerve: Rule out demyelinating disease such as multiple sclerosis especially patient has risk factors being young, female, and is [place]. Rule out sinus thrombosis since on control but my concern for Demylinating disease is higher. Underlying history of sinus disease Plan: Pending MRI of the brain, orbit and cervical spine. Depending on the images will consider lumbar puncture afterwards I gave the patient Solu-Medrol 500 mg once two days ago. Stated while she was at [facility] on 05/16/2024 she was given 1 Solu-Medrol her migraine cocktail which improved slightly. Stated wants to hold off and any further steroids until images and workup comes back. I ordered STAT CTA head and neck and CTV of brain. Her contraceptive is placed on hold. Patient is on morphine 4 mg as needed started by the ED team and she is on [place] as needed. Will defer the rest of the medical management to primary and other specialist I discussed with the patient in length and her nurse. ADDENDUM: MRI was completed and felt there is few lesion suspicious for possible demyelintating. No enhancement. I called the on-call radiologist about case and he stated he will get read it shortly (called Dr. Ernandez at 3:30pm on 05/29/2024). Time with Patient: Less than 30
--- NOTE | 2024-05-29 19:37 | MR ---
EXAMINATION TYPE: MR brain/orbits wo/w con DATE OF EXAM: 05/29/2024 COMPARISON: 05/26/2024 CT brain HISTORY: Headaches, double vision left eye. CONTRAST: Performed utilizing 8 mL intravenous Gadavist gadolinium contrast. TECHNIQUE: Multiplanar, multiecho imaging on a 3.0 Rosana magnet is performed through the brain. Stud y is performed within 24 hours of arrival to the hospital. The craniovertebral junction is normal. The pituitary is normal. There is increased signal within the left sigmoid sinus on T2 and inversion recovery weighted sequenc es. This is hyperintense on T1 weighted sequences. Thrombus within the left sigmoid sinus should be c onsidered. This extends to the proximal left jugular vein. Diffusion-weighted imaging is performed. No abnormal hyperintensity is present to suggest an acute i ntracranial infarct or acute ischemic change. Number recovery weighted sequences within the brain appear normal. No suspicious white matter changes . Ventricles and sulci are appropriate for the patient age. Attention is paid to the orbits. Intraconal and extraconal fat is normal. The globes are symmetrical. Lacrimal glands appear unremarkable. Note is made of an air-fluid level within the right maxillary sinus. Chronic right maxillary sinusiti s. There is opacification of mid and some anterior ethmoid air cells. Some mucosal thickening and pos sible fluid is within the sphenoid sinuses. Left septal deviation is present. Following contrast administration no suspicious enhancement is evident. Filling defect is noted throu gh the left sigmoid sinus. IMPRESSION: 1. Left sigmoid sinus thrombus extending to the proximal left jugular vein. Referring physician was m alonzo aware of the findings prior to interpretation of this exam. 2. No acute intracranial process otherwise apparent. 3. Bilateral orbits appear unremarkable on MRI. 4. Clinical correlation recommended for pansinusitis. Acute left maxillary and sphenoid sinusitis lik herberth present.
--- NOTE | 2024-05-29 20:21 | CT ---
EXAMINATION TYPE: CT angio head neck CT DLP: 1098 mGycm, Automated exposure control for dose reduction was used. DATE OF EXAM: 05/29/2024 8:01 PM COMPARISON: MRI brain 05/29/2024 . CLINICAL INDICATION: Female, 24 years old with history of ctv r/o sinus thrombosis; PHH, TECHNIQUE: Axially acquired helical CT angiogram of the head and neck was obtained with contrast. Axi al images are supplemented with 3D reconstructions and MIP images which were post-processed at an in dependent workstation. NASCET criteria used. Contrast used: mL of 65 cc Isovue-370. Oral contrast used: None. FINDINGS: CTA HEAD: No evidence of acute intracranial hemorrhage, mass effect, or midline shift. The ventricles, sulci, a nd cisterns are unremarkable. Paranasal sinus disease with layering fluid in the right maxillary sinu s The visualized portions of the internal carotid arteries, middle cerebral arteries, anterior cerebr al arteries, and posterior cerebral arteries are patent. The left transverse sinus extending from the confluence through the sigmoid sinus and the cephalad in ternal jugular vein which appears to be compressed by the left dilated process and left transverse pr ocess of C1. The cavernous sinus appears patent without evidence of thrombus. The basilar and vertebral arteries are patent. CTA NECK: Right Carotid System: The common carotid artery and external carotid artery are patent. The carotid bifurcation demonstrate s no evidence of hemodynamically significant stenosis. The remaining portions of the internal carotid artery demonstrate normal size without significant narrowing. Left Carotid System: The common carotid artery and external carotid artery are patent. The carotid bifurcation demonstrate s no evidence of hemodynamically significant stenosis. The remaining portions of the internal carotid artery demonstrate normal size without significant narrowing. Vertebral arteries are patent without evidence hemodynamically significant stenosis. There is a three-vessel aortic arch. The origins of the great vessels are patent. No evidence of hemo dynamically significant stenosis. IMPRESSION: 1. Left transverse sinus thrombus extending to the superior internal jugular vein where is thought t o be caused by compression of the internal jugular vein from the left transverse process of C1 and st yloid process. 2. No evidence of dissection of the cervical internal carotid arteries or vertebral arteries or any evidence of significant stenosis at the carotid bifurcations. 3. No evidence of intracranial high-grade stenosis or intracranial aneurysm. Findings communicated to Dr. William Spivey on 05/29/2024 8:[address] Andrea Diaz.
[2024-05-29] MEDS ORDERED: HEPARIN SOD,PORK IN 0.45% NACL 25,000 UNIT in 0.45% NACL 1 250ML.BAG IV SCH (23:15)
--- NOTE | 2024-05-29 23:34 | P.PN ---
Progress Note - Text Progress Note Date: 05/29/24 Images reveals left transverse sinus thrombosis extending to internal jugular vein. I spoke with Dr. Hobson about case and stated medical management and if any worsening in patient condition or if patient has any bleeding then he will accept her for escalation of care. In the mean, to pursue with hypercoagulable work-up. Then will start the patient on IV heparin drip and no boluses and keep PTT at 45-60 for 24 hours then will have higher goal of PTT then eventually transition to oral anticoagulant. Will consult Oncology team. Recommend CT chest, abdomen and pelvis to r/o malignancy as cause of sinus thrombosis. But likely thrombosis due to her oral contraceptive. Will have patient transferred to ICU. I spoke with the N.P. about the case. Recommend close neuro monitoring.
[2024-05-29 23:47] LABS: Glucose,Whole Blood 106 mg/dL (70-110)
[2024-05-30] MEDS: HEPARIN SOD,PORK IN 0.45% NACL 25,000 UNIT in 0.45% NACL 1 250ML.BAG IV SCH (00:08)
--- NOTE | 2024-05-30 01:05 | P.CNPUL ---
History of Present Illness Consult date: 05/30/24 Requesting physician: William Spivey Reason for consult: other (Venous sinus thrombosis) Chief complaint: Migraine and vision changes History of present illness: Patient is a 24-year-old white female without known past medical history other than seasonal allergies. She does take oral contraceptives at home. Approximately 10 days ago, she developed a severe headache, rated 10/10, radiating up left lateral neck to bilateral temporal region. Initially presented to [facility] and diagnosed with migraine. Initial symptoms including headache, double vision, and blurry vision. She denies any history of migraines. There is some associated left-sided neck pain. She has been seen out patient since then by her PCP and an opthamalogist who recommended brain MRI to be done on an outpatient basis. Patient was worried that the symptoms persisted, and came to our Emergency Department for evaluation 02/24/24. Patient has been evaluated by medical neurology. Underwent CT angio of the brain demonstrating left transverse sinus thrombosis extending to the superior internal jugular vein is thought to be caused by compression of the internal jugular vein from the left transverse process of C1 and styloid process. No evidence of dissection of the cervical internal carotid arteries or vertebral arteries or any evidence of significant stenosis of the carotid bifurcations. No evidence of intracranial high-grade stenosis or intercranial aneurysm. A brain MRI demonstrating left sigmoid sinus thrombosis extending to the left proximal left jugular vein. Bilateral orbits unremarkable. I did speak with Dr. William Spivey who recommended transfer to the intensive care unit for close neurological monitoring. Apparently, Dr. Hobson, neuro-interventionalists from outside tertiary care located within [facility], felt patient appropriate for medical management and IV anticoagulation. Currently, transferred to the intensive care unit room 260. She is awake and alert. She reports some intermittent nausea. Also reporting continued double vision/blurred vision. Left eye is inverted medially. Her headaches is resolved, but reports some left posterior neck pain. A hypercoagulable workup is pending. Denies personal or familial history of blood clots. IV heparin is being started per protocol. Vital signs are stable. She is going to require close neurological monitoring. Recommend transfer to tertiary care center if any neurological deterioration. 2 Review of Systems Constitutional: Denies chills, Denies chronic headaches, Denies fever, Denies weight loss Eyes: left decreased vision, left pain, bilateral blurred vision, bilateral diplopia, denies bulging eye, denies discharge, denies dry eye, denies irritation, denies itching, denies loss of peripheral vision, denies loss of vision Ears: deny: decreased hearing, earache, tinnitus Ears, nose, mouth and throat: Reports headache, Reports nasal discharge, Denies post-nasal drip, Denies sinus pain, Denies sinus pressure, Denies sore throat Cardiovascular: Denies chest pain, Denies edema, Denies palpitations Respiratory: Denies cough, Denies cough with sputum, Denies dyspnea Gastrointestinal: Reports nausea, Denies abdominal pain, Denies constipation, Denies diarrhea, Denies vomiting Genitourinary: Denies dysuria Musculoskeletal: Reports neck pain, Denies arm numbness/tingling, Denies gait dysfunction, Denies leg numbness/tingling, Denies neck stiffness Integumentary: Denies rash Neurological: Reports double vision, Reports headaches, Reports visual changes, Denies aphasia, Denies ataxia, Denies balance difficulties, Denies change in mentation, Denies change in smell/taste, Denies change in speech, Denies confu norma, Denies convulsions, Denies gait dysfunction, Denies head injury, Denies hearing difficulties, Denies lack of coordination, Denies loss of vision, Denies memory loss, Denies migraines, Denies motor disturbance, Denies numbness, Denies paralysis, Denies paresthesias, Denies seizures, Denies syncope Psychiatric: Denies anxiety, Denies depression Past Medical History Past Medical History: No Reported History History of Any Multi-Drug Resistant Organisms: None Reported Past Surgical History: Tonsillectomy Past Anesthesia/Blood Transfusion Reactions: No Reported Reaction Past Psychological History: No Psychological Hx Reported Smoking Status: Never smoker Past Alcohol Use History: None Reported Past Drug Use History: None Reported Medications and Allergies Home Medications Medication Instructions Recorded Confirmed Type Cetirizine HCl [Zyrtec] 10 mg PO DAILY 05/27/24 05/27/24 History Allergies Allergy/AdvReac Type Severity Reaction Status Date / Time escitalopram [From Lexapro] Allergy Unknown Verified 05/27/24 12:57 Physical Exam Vitals: Vital Signs Temp Pulse Resp BP Pulse Ox 05/29/24 19:18 97.6 F 91 16 129/76 97 05/29/24 15:00 98.3 F 91 16 126/76 99 05/29/24 07:00 97.9 F 55 L 16 123/70 99 05/29/24 02:00 98.3 F 51 L 108/69 99 Intake and Output 05/29/24 05/29/24 05/30/24 14:59 22:59 06:59 Intake Total 236 Balance 236 Intake: Oral 236 Other: Voiding Method Toilet Toilet # Voids 3 1 GENERAL EXAM: Alert, 24-year-old white female appearing stated age, sitting up in bed, comfortable in no apparent distress. HEAD: Normocephalic and atraumatic EYES: Left eye is deviated medially. Diplopia appreciated with improvement when covering contralateral eye bilaterally. No nystagmus noted. NOSE: Clear with pink turbinates. THROAT: No erythema or exudates. NECK: No masses, no JVD. CHEST: No chest wall deformity. LUNGS: Equal air entry with no crackles, wheeze, rhonchi or dullness. No conversational dyspnea or accessory muscle use.. CVS: S1 and S2 normal with no audible murmur, regular rhythm. No extra heart sounds ABDOMEN: No hepatosplenomegaly, active bowel sounds, no guarding or rigidity. SPINE: No scoliosis or deformity SKIN: No rashes CENTRAL NERVOUS SYSTEM: Alert and oriented x 3. Facial sensation and strength WDL. Hearing intact. Tongue is midline. No dysarthria. Motor strength in all extremities 5/5. No ataxia appreciated. Sensation normal. Patellar DTRs 2+ bilaterally. Assessment of gait deferred. EXTREMITIES: There is no peripheral edema, clubbing, or cyanosis. Peripheral pulses are intact. Results - Laboratory Findings CBC and BMP: 05/26/24 18:06 05/26/24 18:06 Abnormal lab findings: Abnormal Labs 05/26/24 05/26/24 05/27/24 18:06 18:06 10:45 WBC 12.8 H Eosinophils # 2.0 H Glucose 126 H Urine Blood Trace H Urine Bacteria Rare H Urine Mucus Rare H Assessment and Plan Assessment: Left transverse sinus thrombosis extending into the superior left internal jugular vein Cephalgia, secondary to above Vision disturbances, esotropia left eye Plan: Patient has been transferred to the intensive care unit for close neurological monitoring. I did speak to with Dr. William Spivey who recommended in-house transfer, and feels the patient can be medically managed at our facility with close neuro-checks. Patient is going to be started on IV heparin per protocol. Goal APTT 45-60. No heparin bolus. A hypercoagulable workup is in process. May be exacerbated by patient's oral contraceptive use My supervising physician, Dr. Boles, notified of consultation and plan of care Would still recommend transfer to tertiary care facility if any worsening neurological deterioration. Will continue to follow while in the intensive care unit I have personally seen and examined the patient, performed the documentation and the assessment and plan as written. Number of minutes spent on the visit:20 Time with Patient: Greater than 30
[2024-05-30 01:21] LABS: INR 0.8 (<1.2); Partial Thromboplastin Time 22.8 sec (22.0-30.0); Prothrombin Time 9.5 sec (10.0-12.5)
[2024-05-30 05:42] LABS: HCT 34.8 % (34.0-46.0); HGB 11.3 gm/dL (11.4-16.0); MCH 28.2 pg (25.0-35.0); MCHC 32.5 g/dL (31.0-37.0); MCV 86.7 fL (80.0-100.0); Mean Platelet Volume 7.3; Platelet Count 335 k/uL (150-450); RBC 4.01 m/uL (3.80-5.40); RDW 13.5 % (11.5-15.5); WBC 15.4 k/uL (3.8-10.6)
[2024-05-30] MEDS ORDERED: VANCOMYCIN IV PER PHARMACY 1 EACH MISC MISCELLANE PRN (07:25)
[2024-05-30 07:49] LABS: African American GFR (CKD) >90 (>60 ml/min/1.73 sqM); Non-African American GFR(CKD) >90 (>60 ml/min/1.73 sqM)
[2024-05-30] MEDS: CEFEPIME 2 GM in SODIUM CHLORIDE 0.9% 100 ML IVPB SCH (10:26)
[2024-05-30] MEDS: DEXAMETHASONE SOD PHOSPHATE 10 MG/ML 1 ML VIAL IVP SCH (10:27)
[2024-05-30] MEDS: VANCOMYCIN 1,250 MG in SODIUM CHLORIDE 0.9% 250 ML IVPB SCH (10:30)
--- NOTE | 2024-05-30 13:30 | P.PN ---
Subjective Progress Note Date: 05/30/24 I am following up with the patient and that she was started on IV heparin drip and she feels her headache is improving today it is 3 out of 10. She denies any nausea any vomiting. Continues to have diplopia with blurry vision and appears predominantly on the left side. Any new neurological issues. The ICU team has already informed the patient that he wants her to be transferred to a tertiary center with a surgeon at site especially since she is young. Objective - Vital Signs Vital signs: Vital Signs Temp 98.3 F 05/30/24 08:00 Pulse 87 05/30/24 11:00 Resp 16 05/30/24 11:00 BP 106/58 05/30/24 11:00 Pulse Ox 99 05/30/24 11:00 FiO2 Intake & Output 05/29/24 05/30/24 05/30/24 18:59 06:59 18:59 Intake Total 236 512.766 650 Balance 236 512.766 650 Intake: IV 450 650 Cefepime 2 gm In Sodium 100 Chloride 0.9% 100 ml @ 25 mls/hr IVPB Q8HR ALEX Rx# :[id number] Sodium Chloride 0.9% 1, 450 300 000 ml @ 75 mls/hr IV . [id number] ALEX Rx#:[id number] Vancomycin 1,250 mg In 250 Sodium Chloride 0.9% 250 ml @ 125 mls/hr IVPB Q8HR ALEX Rx#:[id number] Intake, IV Titration 62.766 Amount Heparin Sod,Pork in 0.45% 62.766 NaCl 25,000 unit In 0.45 % NaCl 1 250ml.bag @ 12 UNITS/KG/HR 9.253 mls/hr IV .Q24H ALEX Rx#: [id number] Oral 236 Other: Voiding Method Toilet Toilet Toilet # Voids 3 1 1 - Exam GENERAL: The patient is lying in bed and is not in acute distress. NEUROLOGICAL: Higher mental function: The patient is awake, alert, oriented to self, place and time. Patient is following commands. No aphasia and no neglect. Cranial nerves: The pupils are round, equal and reactive to light and acco mmodation. Primary gaze is left eye is mildly deviated medially and slightly up. Visual lopez are full to confrontation throughout. Has horizontal diplopia but improves when covers either eyes. Extraocular movement is intact no nystagmus is noted. Facial sensation is normal to touch throughout. The facial strength is normal throughout. Hearing is normal bilaterally to hand rub. Tongue is midline and moved [id number] without any difficulty. No dysarthria is noted. Shoulder shrug is normal bilaterally. Motor: Gait is normal. The strength is 5 over 5 throughout. Normal tone and bulk. Cerebellum: Normal finger to nose heel to chin bilaterally. Sensation: Sensation is normal to touch throughout. Reflexes (right/left): 2+ throughout Plantars are downgoing bilaterally. Some of the workup during this hospital visit consisted of: Is afebrile White blood cells 12.8K ESR is 14 TSH is 1.250 Vitamin B12: 574 Urine HCG is not detected. PT is 9.5, INR is 0.8, PTT is 22.8, creatinine is 270, D-dimer is 0.91. PTT this repeat most recent is 31.1 Serum glucose is 126 otherwise the rest of the comprehensive metabolic panel is unremarkable Urinalysis does not appear she has underlying urinary tract fraction CT head is reported as no acute intracranial process. I personally reviewed the CT and agree with the report. MRI Brain and Orbit: Left sigmoid sinus thrombus extending to the proximal left jugular vein. No acute intracranial process otherwise apparent. Bilateral orbits appear unremarkable on the MRI. Clinical correlation recommended for and sinusitis. Acute left maxillary and sphenoid sinusitis likely present. I personally reviewed the MRI and yes it appears that patient has left sigmoid sinus thrombus but on the FLAIR once I also felt the patient had juxtacortical lesion over the bilateral frontal region without any enhancement and I am concerned also she has demyelinating disease as well. CT enterography of the head and neck is reported as left transverse sinus thrombus extending to the superior internal jugular vein were thought to be caused by compression of the internal jugular vein from the left transverse process of C1 and styloid process. No evidence of dissection of cervical internal carotid artery or vertebral artery or any evidence of significant stenosis at the carotid bifurcation. No evidence of intracranial high-grade stenosis or intracranial aneurysm. - Labs CBC & Chem 7: 05/30/24 05:15 05/30/24 05:15 Labs: Abnormal Lab Results - Last 24 Hours (Table) 05/29/24 05/30/24 05/30/24 Range/Units 23:59 05:15 05:15 WBC 15.4 H (3.8-10.6) k/uL Hgb 11.3 L (11.4-16.0) gm/dL PT 9.5 L (10.0-12.5) sec APTT 31.3 H (22.0-30.0) sec D-Dimer 0.91 H (<0.60) mg/L FEU 05/30/24 Range/Units 11:25 WBC (3.8-10.6) k/uL Hgb (11.4-16.0) gm/dL PT (10.0-12.5) sec APTT 37.5 H (22.0-30.0) sec D-Dimer (<0.60) mg/L FEU Assessment and Plan Assessment: This is a 24-year-old woman who present emergency department because of headache, left neck pain, visual disturbance consisting of blurry vision and diplopia which is horizontal and her symptoms has been going on for the past 10 days. Initially she was at outside facility on 05/16/2024 and was told she had migraine and was given cocktail as well as she was told she had acute UTI and was given Bactrim. But her symptoms worsened since then and she was evaluated by the wood preserving plant laborer as an outpatient and she was notified she had increased pressure surrounding her optic nerve and advised her outpatient MRI within a week. 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 Headache is improving On MRI Brain I also felt suspicious patient has possible demylinating process seen on FLAIR but no active lesions Underlying history of sinus disease Plan: Started on heparin drip and will avoid boluses and keep PTT 45-60 for the first 24 hours and after that we will go up and a higher goal for PTT. Then will transition into direct oral anticoagulant Ordered hypercoagulable workup and is pending To get a repeat CT of the head today for surveillance especially since heparin drip was started. CT abdomen chest and pelvis is ordered to rule out any mass. Hematology/oncology team is consulted for Hypercoagulable state MRI of the cervical spine is pending Reviewed the MRI of the brain and I felt in addition possibly the patient has D- mine disease since on FLAIR there is 2 lesion on juxtacortical but not active lesion. I am concerned about sclerosis. Recommend further investigation down the line such as lumbar puncture, MRI thoracic spine and mimickers of D-mine disease Her contraceptive is stopped. She was notified to avoid any estrogen contraceptives since it can increase risk of hypercoagulable state. Today the ICU attending spoke to her and wanted her transferred to a tertiary center to have united [place] marshal/Neurosurgeon at site in case she has any complication and avoid any delay in care. I notified Dr. Hobson (Neuro-nterventi onalist) and he stated patient can be transferred to [facility]. Patient was started on Dexamethasone by ICU team and from neurological perspective she does not need it. Will defer the rest of the medical management to primary and other specialist Pending transfer to [facility] for escalation of care. I discussed with the patient in length with patient, primary team and ICU team. Time with Patient: Greater than 30
--- NOTE | 2024-05-30 15:01 | P.DS ---
Providers Date of admission: 05/30/24 01:29 Dr. Maik MD I have performed a history and physical examination and medical decision making of this patient, discussed the same with the the resident, and agree with the assessment and plan as written. I performed brief physical exam. Attending physician: Cesar Brooke Consults: 05/26/24 21:25 Consult Physician Urgent Consulting Provider: Jace Mcintosh Consult Reason/Comments: Migraine, vision disturbances Do you want consulting provider notified?: Yes, Notify in am 05/29/24 23:00 Consult Physician Stat Consulting Provider: Yury Boles Consult Reason/Comments: transfer to icu for sinus thrombosis and needs anticoagulation Do you want consulting provider notified?: Yes 05/29/24 23:08 Consult Physician Routine Consulting Provider: Juancarlos Hoffmann Consult Reason/Comments: r/o hypercoagulabe with hx of sinus thrombosis Do you want consulting provider notified?: Yes 05/30/24 07:33 Consult Physician Stat Consulting Provider: Chauncey Vilchis Consult Reason/Comments: sinus thrombosis Do you want consulting provider notified?: Yes Primary care physician: [facility] Course: Discharge diagnoses; # Thrombosis of the transverse sinus extending to the internal jugular vein MRI of the brain completed on (05/29) showed a left sigmoid sinus thrombus extending to the proximal left jugular vein CTA head neck completed on (05/29) showed left transverse sinus thrombus extending to the superior internal jugular vein were it is thought to be culprit compression of the internal jugular vein from the left transverse process of C1 and styloid process. No evidence of dissection or any evidence of significant stenosis at the carotid bifurcations, no evidence of intracranial high-grade stenosis or intracranial aneurysms. - Per neurology's recommendation, patient will be treated medically at this facility - if any neurologic deterioration or bleeding occurs patient will be transferred to tertiary care center Patient transferred to the ICU for close neurologic checks Hypercoagulable workup begun IV heparin drip, with no boluses, started - maintain PTT at 4560 for 24 hours, per neurology's recommendation Eventually transition to oral anticoagulation Hematology/oncology consulted CT chest/abdomen/pelvis ordered to rule out possible malignant cause of sinus thrombosis; likely secondary to oral contraceptive use # Headache secondary to above Presented with headache for 10 days, double vision for 1 week She is continue to have her pain controlled with Toradol. Additionally has morphine and Carmichael available as needed. Neurology recommend MRI of the brain, orbit and cervical spine to be completed today (05/29) MRI of the brain completed on (05/29) showed a left sigmoid sinus thrombus extending to the proximal left jugular vein # Diplopia and blurry vision possibly secondary to transverse sinus thrombosis Presented with headache for 10 days, double vision for 1 week; was referred to an formal waiter/waitress by her PCP Compressor Technician stated, as per the patient, that the patient had inflammation of the optic nerve Advised by the ophthalmology to get an MRI within 1 week. Monitor with neurochecks. TSH unremarkable. Check vitamin B12, ESR per neurology; both within normal limits Started on Solu-Medrol 500 mg once per neurology 05/27 Neurology recommended MRI of the brain, orbit and cervical spine to be completed today (05/29) MRI of the brain completed on (05/29) showed a left sigmoid sinus thrombus extending to the proximal left jugular vein Pain control Tylenol, Carmichael as needed Hospital course; 24-year-old female with no significant past medical history who presented to ER with a complaint of headache and double vision. Patient stated that she is having headache for about last 10 days and it started on the left side of back of the neck and radiated up to the left side of her head into the forehead bilaterally. Patient also felt muffled hearing. Patient currently still having throbbing headache, 7 x 10 intensity, worse with standing and constant, relieved with Toradol. Patient reported that she started to have double vision about 1 week ago which she noticed worsened after p.o. Toradol. Patient denied any visual disturbances with 1 eye closed. Patient was evaluated at [facility] on 05/16/2024 for headache and was felt to have migraine was treated with migraine cocktail which helped with the headache but did not resolve it completely. Patient was given Bactrim for UTI at that time, did not have any imaging. Patient denied any focal numbness, weakness, trouble speaking or swallowing. Patient then went to an urgent care, was advised to see an formal waiter/waitress, patient was told by the formal waiter/waitress that she had increased pressure surrounding the optic nerve and was advised to get an MRI within a week, patient decided to come to the hospital to get it addressed. Patient denied any history of migraines, denied any history of stroke, Lyme disease, history of MS, family history of early stroke or MS. Patient is afebrile, heart rate 70, respiratory rate 16, blood pressure 112/70, saturating 98% on room air. WBCs 12.8, hemoglobin 12.3, platelet 439. BMP unremarkable. LFTs unremarkable. TSH normal. UA unremarkable. 05/28/2024-patient was seen and examined today. Patient complained of headache, still has double vision, vision improve with 1 eye closed. Neurology following. Headache better controlled with Toradol, restarted. Awaiting MRI brain, orbit and cervical spine on Wednesday, discussed with neurology, concern for MS. 05/29 -patient seen at bedside today. Patient complained of headache, continues to have double vision, vision improved with 1 eye closed. Neurology consult completed on 05/27, and they continue to follow. MRI of the brain, orbit and cervical spine to be completed today. Per neurology consultation, considering lumbar puncture following results of MRI. Patient states that her headaches have improved considerably, however she still has been suffering from double vision and blurry vision. Continues to be alleviated by closing one of her eyes, however she states there is no indication related to that. She states that she has no known family history of multiple sclerosis. She states that other than her vision problems at the moment she feels well and has no complaints. 05/30 - patient seen at bedside today. MRI of the brain and orbit was completed yesterday (05/29) which showed a left sigmoid sinus thrombus extending to the proximal left jugular vein, no acute intracranial process otherwise apparent, bilateral orbits appear unremarkable on the MRI. Additionally, she underwent a CT angio of the head/neck which revealed left transverse sinus thrombus extending to the superior internal jugular vein where he was thought to be caused by compression of the internal jugular vein from the left transverse process of C1 and styloid process. No evidence of dissection at the carotid bifurcations, significant stenosis or intracranial high-grade stenosis or intracranial aneurysm noted. Labs this morning noted WBCs 15.4, Hgb 11.3 Hct 34.8, PLT 335, PTT 31.3, and D-dimer completed yesterday (05/29) 0.91. Patient is being transferred to [facility] for further observation with neurosurgery present. Process of transfer is underway with everything approved and Dr. Richard at [facility] excepting to take on the patient. Labs done today - WBCs 15.4, Hgb 11.3, Hct 34.8, PLT 335, PTT 31.3, D-dimer completed on 05/29/24 0.91 Imaging none today - MRI brain and orbit completed on 05/29/2024 showed left sigmoid sinus thrombus extending to the proximal left jugular vein, no acute intracranial process otherwise apparent, bilateral orbits appear unremarkable on the MRI. CTA head/neck completed on 05/29/2024 showed left transverse sinus thrombus extending to the superior internal jugular vein where it is thought to be caused by compression of the internal jugular vein from the left transverse process of C1 and styloid process. No evidence of dissection at the carotid bifurcations, significant stenosis or intracranial high-grade stenosis or intracranial aneurysm noted. PHYSICAL EXAMINATION: GENERAL: The patient is alert and oriented x3, not in any acute distress. Well developed, well nourished. HEENT: Pupils are round and equally reacting to light. EOMI. No scleral icterus. No conjunctival pallor. Normocephalic, atraumatic. No pharyngeal erythema. No thyromegaly. CARDIOVASCULAR: S1 and S2 present. No murmurs, rubs, or gallops. PULMONARY: Chest is clear to auscultation, no wheezing or crackles. ABDOMEN: Soft, nontender, nondistended, normoactive bowel sounds. No palpable organomegaly. MUSCULOSKELETAL: No joint swelling or deformity. EXTREMITIES: No cyanosis, clubbing, or pedal edema. NEUROLOGICAL: Gross neurological examination did not reveal any focal deficits. SKIN: No rashes. Dictation was produced using [employer] dictation software. please excuse any grammatical, word or spelling errors. Patient Condition at Discharge: Fair Plan - Discharge Summary Discharge Rx Participant: No New Discharge Prescriptions: New Apixaban [Eliquis Starter Pack (for VTE)] 5 - 10 mg PO DIRECTED 30 Days #1 each No Action Cetirizine HCl [Zyrtec] 10 mg PO DAILY Discharge Medication List Cetirizine HCl [Zyrtec] 10 mg PO DAILY 05/27/24 [History] Apixaban [Eliquis Starter Pack (for VTE)] 5 - 10 mg PO DIRECTED 30 Days #1 each 05/30/24 [Rx] Follow up Appointment(s)/Referral(s): Mitchell Guzman DO [Primary Care Provider] - 1-2 days
--- NOTE | 2024-05-30 15:17 | P.CONS ---
History of Present Illness - Reason for Consult Consult date: 05/30/24 sinus thrombus, r/o hypercoaguable Requesting physician: William Spivey - Chief Complaint visual disturbances - History of Present Illness Patient is a 24-year-old female with no significant medical history. Consult was placed for sinus thrombus to rule out hypercoagulable state. Patient presented to the emergency room with headache and visual disturbances that began on 05/21. She states symptoms began to worsen which caused her to present to the emergency room for further evaluation. MRI brain/orbits showed left sigmoid sinus thrombus extending to the proximal left jugular vein. No acute intracranial processes otherwise apparent. CT angio head and neck showed left transverse sinus thrombus extending to the superior internal jugular vein. No evidence of dissection of the cervical internal carotid arteries or vertebral arteries or any evidence of significant stenosis of the carotid bifurcations. No evidence of intracranial high-grade stenosis or intracranial aneurysm. Patient has been started on heparin drip. Labs reviewed, coags WNL, D-dimer 0.91. Fibrinogen 270. WBC 15.4, hemoglobin 11.3, platelets are 35,000. Patient states that she has been on oral contraceptives but does not know the name of the medication but does believe it is combined oral contraceptive. It has since been stopped. Patient is reporting persisting blurred vision. Gilda rology following Review of Systems 10 point ROS is negative except as stated in the HPI Past Medical History Past Medical History: No Reported History History of Any Multi-Drug Resistant Organisms: None Reported Past Surgical History: Tonsillectomy Past Anesthesia/Blood Transfusion Reactions: No Reported Reaction Past Psychological History: No Psychological Hx Reported Smoking Status: Never smoker Past Alcohol Use History: None Reported Past Drug Use History: None Reported Medications and Allergies Home Medications Medication Instructions Recorded Confirmed Type Cetirizine HCl [Zyrtec] 10 mg PO DAILY 05/27/24 05/27/24 History Apixaban [Eliquis Starter Pack 5 - 10 mg PO DIRECTED 30 Days 05/30/24 Rx (for VTE)] #1 each Allergies Allergy/AdvReac Type Severity Reaction Status Date / Time escitalopram [From Lexapro] Allergy Unknown Verified 05/27/24 12:57 Physical Exam Vitals: Vital Signs Temp Pulse Pulse Resp BP BP Pulse Ox 05/30/24 11:00 87 16 106/58 99 05/30/24 10:00 90 23 96 05/30/24 09:00 96 25 H 100 05/30/24 08:00 98.3 F 84 23 104/62 96 05/30/24 07:30 56 L 15 102/72 97 05/30/24 07:15 75 14 102/72 97 05/30/24 07:00 71 13 110/69 97 05/30/24 06:45 54 L 13 110/69 97 05/30/24 06:30 52 L 15 113/68 96 05/30/24 06:15 65 12 113/68 95 05/30/24 06:00 63 16 123/73 97 05/30/24 05:45 73 11 L 123/73 97 05/30/24 05:30 54 L 14 115/75 97 05/30/24 05:15 70 18 115/75 98 05/30/24 05:00 52 L 11 L 114/56 98 05/30/24 04:45 50 L 13 114/56 97 05/30/24 04:30 56 L 11 L 115/66 97 05/30/24 04:15 65 15 115/66 96 05/30/24 04:00 98.6 F 61 11 L 120/59 97 05/30/24 03:45 57 L 12 120/59 97 05/30/24 03:30 56 L 12 114/62 05/30/24 03:15 62 14 114/62 98 05/30/24 03:00 63 11 L 114/59 97 05/30/24 02:45 65 16 114/59 97 05/30/24 02:30 63 11 L 124/62 96 05/30/24 02:15 65 5 L 124/62 96 05/30/24 02:00 67 12 124/58 98 05/30/24 01:45 72 24 124/58 96 05/30/24 01:36 97.8 F 81 13 124/58 100 05/30/24 01:30 87 16 122/57 97 05/30/24 01:15 80 23 122/57 98 05/30/24 01:06 97.6 F 82 14 122/57 99 05/30/24 01:00 79 18 131/69 97 05/30/24 00:45 88 14 131/69 97 05/30/24 00:30 80 18 126/71 96 05/30/24 00:00 97.6 F 82 14 139/94 99 05/29/24 23:45 91 13 139/94 99 05/29/24 19:18 97.6 F 91 16 129/76 97 05/29/24 15:00 98.3 F 91 16 126/76 99 Intake and Output 05/29/24 05/30/24 05/30/24 22:59 06:59 14:59 Intake Total 512.766 650 Balance 512.766 650 Intake: IV 450 650 Cefepime 2 gm In Sodium 100 Chloride 0.9% 100 ml @ 25 mls/hr IVPB Q8HR ALEX Rx# :[id number] Sodium Chloride 0.9% 1, 450 300 000 ml @ 75 mls/hr IV . [id number] ALEX Rx#:[id number] Vancomycin 1,250 mg In 250 Sodium Chloride 0.9% 250 ml @ 125 mls/hr IVPB Q8HR ALEX Rx#:[id number] Intake, IV Titration 62.766 Amount Heparin Sod,Pork in 0.45% 62.766 NaCl 25,000 unit In 0.45 % NaCl 1 250ml.bag @ 12 UNITS/KG/HR 9.253 mls/hr IV .Q24H ALEX Rx#: [id number] Other: Voiding Method Toilet Toilet Toilet # Voids 1 1 1 - Constitutional General appearance: average body habitus, no acute distress - EENT Eyes: anicteric sclerae, EOMI ENT: hearing grossly normal - Respiratory breathing is even and unlabored - Cardiovascular well perfused - Integumentary Integumentary: cyanotic - Musculoskeletal Musculoskeletal: strength equal bilaterally - Psychiatric Psychiatric: A&O x's 3 Results CBC & Chem 7: 05/30/24 05:15 05/30/24 05:15 Labs: Abnormal Lab Results - Last 24 Hours (Table) 05/29/24 05/30/24 05/30/24 Range/Units 23:59 05:15 05:15 WBC 15.4 H (3.8-10.6) k/uL Hgb 11.3 L (11.4-16.0) gm/dL PT 9.5 L (10.0-12.5) sec APTT 31.3 H (22.0-30.0) sec D-Dimer 0.91 H (<0.60) mg/L FEU 05/30/24 Range/Units 11:25 WBC (3.8-10.6) k/uL Hgb (11.4-16.0) gm/dL PT (10.0-12.5) sec APTT 37.5 H (22.0-30.0) sec D-Dimer (<0.60) mg/L FEU CT Scan - head: report reviewed MRI - head: report reviewed Assessment and Plan (1) Double vision with both eyes open Current Visit: Yes Status: Acute Priority: High Code(s): H53.2 - DIPLOPIA SNOMED Code(s): 108871212 (2) Thrombosis of left internal jugular vein Current Visit: Yes Status: Acute Priority: High Code(s): I82.C12 - ACUTE EMBOLISM AND THROMBOSIS OF LEFT INTERNAL JUGULAR VEIN SNOMED Code(s): 612286758 Plan: Left sinus thrombus: Presented to the emergency room with headache and visual disturbances that began on 05/21. -MRI brain/orbits showed left sigmoid sinus thrombus extending to the proximal left jugular vein. No acute intracranial processes otherwise apparent. CT angio head and neck showed left transverse sinus thrombus extending to the superior internal jugular vein. No evidence of dissection of the cervical internal carotid arteries or vertebral arteries or any evidence of significant stenosis of the carotid bifurcations. No evidence of intracranial high-grade stenosis or intracranial aneurysm. -Patient has been started on heparin drip. Nueurology following -Appears to be a provoked thrombus due to oral contraceptive use. Recommend stopping BALWINDER and to f/u with HYDROLOGIC ENGINEER for other contraceptive options -Recommend 6 months of anticoagulation. Once no procedures/interventions planned pt can be transitioned to DOAC. Leonor has been sent to [facility] case management consulted to obtain prior auth -Hypercoaguable workup ordered -Will schedule clinic f/u for further anticoagulation management Discussed plan of care with pt, she was agreeable to the same
--- NOTE | 2024-05-30 18:26 | CT ---
EXAMINATION TYPE: CT ChestAbdPelvis w con DATE OF EXAM: 05/30/2024 INDICATION: SINUS TROMBUS COMPARISON: None CT DLP: 2022.1 mGycm CONTRAST: Performed without Oral Contrast and with IV Contrast, patient injected with 100 mL of Isovue 300. TECHNIQUE: Axial images at 5 mm thick sections. Reconstructed images in the coronal plane. Delayed images through the kidneys. FINDINGS: CT CHEST: Portion of the thyroid visualized is normal. No suspicious lung nodules or focal infiltrates are present. No enlarged mediastinal or hilar adenopathy is evident. The ascending aorta diameter at the level of the main pulmonary artery is 2.5 cm. The main pulmonary artery diameter at the bifurcation is 2.[address] ABDOMEN: Liver: Normal Spleen: Normal Pancreas: Normal Adrenal glands: The adrenal glands are normal. Gallbladder: Normal Kidneys: No masses are evident. No hydronephrosis is present. No cysts are present. Delayed images were obtained through the kidneys, which remain unremarkable. Aorta: Normal Inferior vena cava: Normal. CT PELVIS: Loops of bowel within the abdomen and pelvis are normal. This study is without oral contrast limi ting bowel evaluation. Appendix: Not identified. No suspicious dilated tubular structure or inflammatory changes evident Urinary bladder: Normal. Genitourinary structures: Uterus and adnexa appear normal. Osseous structures: No suspicious lytic or sclerotic lesions. IMPRESSION: 1. No suspicious masses. 2. No acute changes.
--- NOTE | 2024-05-30 19:24 | CT ---
EXAMINATION TYPE: CT brain wo con DATE OF EXAM: 05/30/2024 COMPARISON: MRI brain 05/29/2024, CT brain 05/26/2024 INDICATION: F/U HEPARIN DLP: 1058.8 mGycm, Automated exposure control for dose reduction was used. CONTRAST: None CT of the brain is performed utilizing 3 mm thick sections through the posterior fossa and 3 mm thick sections through the remaining calvarium. Study is performed within 24 hours of arrival to the hosp [facility]. No abnormal hyperdensity is present to suggest an acute intracranial hemorrhage. No mass lesion is evident. No acute infarcts are evident. Patient's left sigmoid sinus thrombus not clearly identified. There is vague increased density on the left in this region however. There may be some residual thrombus with in the transverse portion. Ventricles and sulci are appropriate for the patient age. Persistent maxillary and sphenoid and ethmoid sinusitis. The mastoid air cells remain clear. IMPRESSION: 1. Vague increased density at the left transverse and sigmoid sinus can be compatible with patient' s known thrombus. This is poorly visualized on this exam. 2. No acute intracranial changes otherwise evident. 3. Persistent maxillary and sphenoid and ethmoid sinusitis.
[2024-05-30 20:11] LABS: Cardiolipin IgA Antibody <2.0 U/mL
[2024-05-30 20:17] LABS: Cardiolipin Ab IgG Interp Negative (Negative); Cardiolipin Ab IgM Interp Negative (Negative); Cardiolipin IgM Antibody 2.2 U/mL
[2024-05-30 20:44] LABS: African American GFR (CKD) >90 (>60 ml/min/1.73 sqM); Non-African American GFR(CKD) >90 (>60 ml/min/1.73 sqM)
[2024-05-31 00:10] LABS: Anti-DNA, DS unit <1.0 IU/mL; DNA Double-Stranded Negative (Negative)
[2024-05-31 06:27] LABS: HGB 11.5 gm/dL (11.4-16.0); Hypochromasia Slight; MCH 27.1 pg (25.0-35.0); MCV 87.4 fL (80.0-100.0); Mean Platelet Volume 6.6; Platelet Count 390 k/uL (150-450); RBC 4.23 m/uL (3.80-5.40); RDW 13.3 % (11.5-15.5); WBC 17.8 k/uL (3.8-10.6)
[2024-05-31 07:06] LABS: African American GFR (CKD) >90 (>60 ml/min/1.73 sqM); Anion Gap 4 mmol/L; Blood Urea Nitrogen 11 mg/dL (7-17); Calcium 9.3 mg/dL (8.4-10.2); Carbon Dioxide 24 mmol/L (22-30); Chloride 110 mmol/L (98-107); Glucose 98 mg/dL (74-99); Non-African American GFR(CKD) >90 (>60 ml/min/1.73 sqM); Potassium 4.2 mmol/L (3.5-5.1); Sodium 138 mmol/L (137-145)
--- NOTE | 2024-05-31 08:10 | P.CONS ---
History of Present Illness - Reason for Consult Consult date: 05/30/24 Sinus thrombosis Requesting physician: Mitchell Hanna - Chief Complaint Headache and double vision x days - History of Present Illness Patient is a 24-year-old female with no significant past medical history presenting to the hospital 4 days ago complaining of headache and double vision in this patient symptom has been going on for about a week previously evaluated at [facility] was evaluated in the outpatient setting by ophthalmology and apparently was diagnosed with increased pressure surrounding her optic nerve and advised the patient to go to the ER patient subsequently has been evaluated by neurology and admitting team patient did have workup including a CT of the brain on admission no acute intracranial process patient did have a brain orbit MRI left sigmoid sinus thrombus extending to the proximal left jugular vein no acute intracranial process bilateral orbits appear unremarkable on MRI clinical correlation recommended for pansinusitis acute left maxillary and sphenoid sinusitis likely present patient has been started on vancomycin and cefepime patient has been transferred to the ICU infectious disease was consulted for further management of antibiotic therapy patient denies having any fever or any chills and no fever has been recorded during this hospital stay, has been complaining of double vision mostly and headache which has been mild to moderate intensity. Relief with the medication complaining of some nausea but no vomiting denies significant pain to the sinus area or any purulent nasal drainage or postnasal drip no chest pain shortness of breath or cough no abdominal pain no diarrhea, patient did have a white count of 12.8 which is slightly up to 15.4 today creatinine has been normal electrolytes has been normal urine has been negative Review of Systems Positive point and negatives has been mentioned in the HPI, complete review of systems was performed and all other systems are negative Past Medical History Past Medical History: No Reported History History of Any Multi-Drug Resistant Organisms: None Reported Past Surgical History: Tonsillectomy Past Anesthesia/Blood Transfusion Reactions: No Reported Reaction Past Psychological History: No Psychological Hx Reported Smoking Status: Never smoker Past Alcohol Use History: None Reported Past Drug Use History: None Reported Medications and Allergies Home Medications Medication Instructions Recorded Confirmed Type Cetirizine HCl [Zyrtec] 10 mg PO DAILY 05/27/24 05/27/24 History Apixaban [Eliquis Starter Pack 5 - 10 mg PO DIRECTED 30 Days 05/30/24 Rx (for VTE)] #1 each Allergies Allergy/AdvReac Type Severity Reaction Status Date / Time escitalopram [From Trov] Allergy Unknown Verified 05/27/24 12:57 Physical Exam Vitals: Vital Signs Temp Pulse Pulse Resp BP BP Pulse Ox 05/30/24 11:00 87 16 106/58 99 05/30/24 10:00 90 23 96 05/30/24 09:00 96 25 H 100 05/30/24 08:00 98.3 F 84 23 104/62 96 05/30/24 07:30 56 L 15 102/72 97 05/30/24 07:15 75 14 102/72 97 05/30/24 07:00 71 13 110/69 97 05/30/24 06:45 54 L 13 110/69 97 05/30/24 06:30 52 L 15 113/68 96 05/30/24 06:15 65 12 113/68 95 05/30/24 06:00 63 16 123/73 97 05/30/24 05:45 73 11 L 123/73 97 05/30/24 05:30 54 L 14 115/75 97 05/30/24 05:15 70 18 115/75 98 05/30/24 05:00 52 L 11 L 114/56 98 05/30/24 04:45 50 L 13 114/56 97 05/30/24 04:30 56 L 11 L 115/66 97 05/30/24 04:15 65 15 115/66 96 05/30/24 04:00 98.6 F 61 11 L 120/59 97 05/30/24 03:45 57 L 12 120/59 97 05/30/24 03:30 56 L 12 114/62 05/30/24 03:15 62 14 114/62 98 05/30/24 03:00 63 11 L 114/59 97 05/30/24 02:45 65 16 114/59 97 05/30/24 02:30 63 11 L 124/62 96 05/30/24 02:15 65 5 L 124/62 96 05/30/24 02:00 67 12 124/58 98 05/30/24 01:45 72 24 124/58 96 05/30/24 01:36 97.8 F 81 13 124/58 100 05/30/24 01:30 87 16 122/57 97 05/30/24 01:15 80 23 122/57 98 05/30/24 01:06 97.6 F 82 14 122/57 99 05/30/24 01:00 79 18 131/69 97 05/30/24 00:45 88 14 131/69 97 05/30/24 00:30 80 18 126/71 96 05/30/24 00:00 97.6 F 82 14 139/94 99 05/29/24 23:45 91 13 139/94 99 05/29/24 19:18 97.6 F 91 16 129/76 97 05/29/24 15:00 98.3 F 91 16 126/76 99 Intake and Output 05/29/24 05/30/24 05/30/24 22:59 06:59 14:59 Intake Total 512.766 650 Balance 512.766 650 Intake: IV 450 650 Cefepime 2 gm In Sodium 100 Chloride 0.9% 100 ml @ 25 mls/hr IVPB Q8HR ALEX Rx# :[id number] Sodium Chloride 0.9% 1, 450 300 000 ml @ 75 mls/hr IV . [id number] ALEX Rx#:[id number] Vancomycin 1,250 mg In 250 Sodium Chloride 0.9% 250 ml @ 125 mls/hr IVPB Q8HR ALEX Rx#:[id number] Intake, IV Titration 62.766 Amount Heparin Sod,Pork in 0.45% 62.766 NaCl 25,000 unit In 0.45 % NaCl 1 250ml.bag @ 12 UNITS/KG/HR 9.253 mls/hr IV .Q24H ALEX Rx#: [id number] Other: Voiding Method Toilet Toilet Toilet # Voids 1 1 1 GENERAL DESCRIPTION: Young female lying in bed, no distress. No tachypnea or accessory muscle of respiration use. HEENT: Shows Pallor , no scleral icterus. Oral mucous membrane is dry. No pharyngeal erythema or thrush NECK: Trachea central, no thyromegaly. LUNGS: Unlabored breathing. Clear to auscultation anteriorly. No wheeze or crackle. HEART: S1, S2, regular rate and rhythm. No loud murmur ABDOMEN: Soft, no tenderness , guarding or rigidity, no organomegaly EXTREMITIES: No edema of feet. SKIN: No rash, no masses palpable. NEUROLOGICAL: The patient is awake, alert, oriented x3, mood and affect normal. Results CBC & Chem 7: 05/31/24 06:10 05/31/24 06:10 Labs: Abnormal Lab Results - Last 24 Hours (Table) 05/29/24 05/30/24 05/30/24 Range/Units 23:59 05:15 05:15 WBC 15.4 H (3.8-10.6) k/uL Hgb 11.3 L (11.4-16.0) gm/dL PT 9.5 L (10.0-12.5) sec APTT 31.3 H (22.0-30.0) sec D-Dimer 0.91 H (<0.60) mg/L FEU Assessment and Plan (1) Sinusitis Status: Acute Code(s): J32.9 - CHRONIC SINUSITIS, UNSPECIFIED SNOMED Code(s): 20426555 (2) Leukocytosis Status: Acute Code(s): D72.829 - ELEVATED WHITE BLOOD CELL COUNT, UNSPECIFIED SNOMED Code(s): 248030492 Plan: 1patient presented to hospital with headache double vision and this patient has been diagnosed with the left sigmoid sinus thrombosis extending to the proximal left jugular vein MRI also shows evidence of pansinusitis with acute left maxillary sinusitis did have elevated white count with a question of possible incidental finding as the patient did not have significant sinus symptoms versus possibly acute disease. 2blood culture has been obtained as well as inflammatory markers results will be followed. 3continue with broad-spectrum IV form of vancomycin and cefepime pending finalization of the culture. Patient will benefit from transfer to tertiary care keeping in mind her complex clinical condition. We will follow on clinical condition and cultures to further adjust medication if needed Thank you for this consultation we will follow the patient along with you Dictation was produced using [employer] dictation software. please excuse any grammatical, word or spelling errors. Time with Patient: Greater than 30
[2024-05-31 09:27] VITALS: TEMP 98.3
--- NOTE | 2024-05-31 10:26 | MR ---
EXAMINATION TYPE: MR cervical spine wo/w con DATE OF EXAM: 05/30/2024 1:19 PM COMPARISON: NONE HISTORY: Pain CONTRAST: The patient was injected with 8 mL intravenous gadavist contrast. Multiplanar MultiSpin echo imaging of the cervical spine was performed. C2-C3: No evidence for degenerative disc disease. No disc bulge/herniation or protrusion. No Canal stenosis. Foramina are patent bilaterally. C3-C4: No evidence for degenerative disc disease. No disc bulge/herniation or protrusion. No Canal stenosis. Foramina are patent bilaterally. C4-C5: No evidence for degenerative disc disease. No disc bulge/herniation or protrusion. No Canal stenosis. Foramina are patent bilaterally. C5-C6: No evidence for degenerative disc disease. No disc bulge/herniation or protrusion. No Canal stenosis. Foramina are patent bilaterally. C6-C7:No evidence for degenerative disc disease. No disc bulge/herniation or protrusion. No Canal s tenosis. Foramina are patent bilaterally. C7-T1: No evidence for degenerative disc disease. No disc bulge/herniation or protrusion. No Canal stenosis. Foramina are patent bilaterally. No cervical spine fracture. There is normal alignment. Cervical spinal cord is of normal signal. C raniovertebral junction relationships are within normal limits. No pathologic enhancement. IMPRESSION: 1. No abnormality about the cervical spine.
[2024-05-31 12:09] LABS: APTT 34 Sec(s) (<43); Dilute Russell Viper Venom 35 Sec(s) (<44)
[2024-05-31 12:25] LABS: Protein S Antigen 79 % (50 - 140)
--- NOTE | 2024-05-31 12:55 | P.PN ---
Subjective Progress Note Date: 05/31/24 I am following up with the patient and she feels her headache is subsiding she feels the headache currently is 2 out of 10. She is getting Tylenol as needed and that is helping. She has left neck pain that has been going on throughout this hospital visit. Denies any new neurological issue. She continues to have diplopia. Patient was accepted to [facility], ICU and pending bed availability. Objective - Vital Signs Vital signs: Vital Signs Temp 98.3 F 05/31/24 08:00 Pulse 93 05/31/24 12:00 Resp 14 05/31/24 12:00 BP 107/62 05/31/24 12:00 Pulse Ox 97 05/31/24 12:00 FiO2 Intake & Output 05/30/24 05/31/24 05/31/24 18:59 06:59 18:59 Intake Total 3525.571 1286.663 670 Balance 3525.571 1286.663 670 Weight 85.3 kg Intake: IV 1450 1175 670 0.9% @ KVO 20 Cefepime 2 gm In Sodium 200 100 100 Chloride 0.9% 100 ml @ 25 mls/hr IVPB Q8HR ALEX Rx# :[id number] Sodium Chloride 0.9% 1, 750 825 300 000 ml @ 10 mls/hr IV . Q24H ALEX Rx#:[id number] Vancomycin 1,250 mg In 500 250 250 Sodium Chloride 0.9% 250 ml @ 125 mls/hr IVPB Q8HR ALEX Rx#:[id number] Intake, IV Titration 75.571 111.663 Amount Heparin Sod,Pork in 0.45% 75.571 111.663 NaCl 25,000 unit In 0.45 % NaCl 1 250ml.bag @ 12 UNITS/KG/HR 9.253 mls/hr IV .Q24H ALEX Rx#: [id number] Oral 2000 Other: Voiding Method Toilet Toilet Toilet # Voids 1 2 - Exam GENERAL: The patient is lying in bed and is not in acute distress. NEUROLOGICAL: Higher mental function: The patient is awake, alert, oriented to self, place and time. Patient is following commands. No aphasia and no neglect. Cranial nerves: The pupils are round, equal and reactive to light and accommodation. Primary gaze is left eye is mildly deviated medially and slig htly up. Visual lopez are full to confrontation throughout. Has horizontal diplopia but improves when covers either eyes. Extraocular movement is intact no nystagmus is noted. Facial sensation is normal to touch throughout. The facial strength is normal throughout. Hearing is normal bilaterally to hand rub. Tongue is midline and moved [id number] without any difficulty. No dysarthria is noted. Shoulder shrug is normal bilaterally. Motor: Gait is normal. The strength is 5 over 5 throughout. Normal tone and bulk. Cerebellum: Normal finger to nose heel to chin bilaterally. Sensation: Sensation is normal to touch throughout. Reflexes (right/left): 2+ throughout Plantars are downgoing bilaterally. Some of the workup during this hospital visit consisted of: Is afebrile White blood cells 12.8K ESR is 14 TSH is 1.250 Vitamin B12: 574 Urine HCG is not detected. Factor V Leiden mutation is negative Antithrombin III antigen Is normal, protein S antigen is normal. Double-stranded DNA is negative, anticardiolipin IgA IgG, IgA and IgM are negative. Prothrombin G20 210A mutation is negative PT is 9.5, INR is 0.8, PTT is 22.8, creatinine is 270, D-dimer is 0.91. PTT this repeat most recent is 31.1 Serum glucose is 126 otherwise the rest of the comprehensive metabolic panel is unremarkable Urinalysis does not appear she has underlying urinary tract fraction CT head is reported as no acute intracranial process. I personally reviewed the CT and agree with the report. MRI Brain and Orbit: Left sigmoid sinus thrombus extending to the proximal left jugular vein. No acute intracranial process otherwise apparent. Bilateral orbits appear unremarkable on the MRI. Clinical correlation recommended for and sinusitis. Acute left maxillary and sphenoid sinusitis likely present. I personally reviewed the MRI and yes it appears that patient has left sigmoid sinus thrombus but on the FLAIR once I also felt the patient had juxtacortical lesion over the bilateral frontal region without any enhancement and I am concerned also she has demyelinating disease as well. CT enterography of the head and neck is reported as left transverse sinus thrombus extending to the superior internal jugular vein were thought to be caused by compression of the internal jugular vein from the left transverse process of C1 and styloid process. No evidence of dissection of cervical internal carotid artery or vertebral artery or any evidence of significant stenosis at the carotid bifurcation. No evidence of intracranial high-grade stenosis or intracranial aneurysm. Repeat CT of the head yesterday was reported as vague increased density in the left transverse and sigmoid sinus can be compatible with patient known thrombus. There is poorly visualized on this exam. No acute intracranial changes otherwise evident. Persistent maxillary and sphenoid and ethmoid sinusitis. MRI of the cervical spine is reported as no abnormality about the cervical spine. CT chest abdomen pelvis is reported as no suspicious masses. No acute changes. - Labs CBC & Chem 7: 05/31/24 06:10 05/31/24 06:10 Labs: Abnormal Lab Results - Last 24 Hours (Table) 05/30/24 05/31/24 05/31/24 Range/Units 20:06 01:22 06:10 WBC 17.8 H (3.8-10.6) k/uL APTT 42.3 H 58.0 H (22.0-30.0) sec Chloride (98-107) mmol/L 05/31/24 05/31/24 Range/Units 06:10 07:43 WBC (3.8-10.6) k/uL APTT 66.0 H (22.0-30.0) sec Chloride 110 H (98-107) mmol/L Assessment and Plan Assessment: This is a 24-year-old woman who present emergency department because of headache, left neck pain, visual disturbance consisting of blurry vision and diplopia which is horizontal and her symptoms has been going on for the past 10 days. Initially she was at outside facility on 05/16/2024 and was told she had migraine and was given cocktail as well as she was told she had acute UTI and was given Bactrim. But her symptoms worsened since then and she was evaluated by the orthopedic physical therapist as an outpatient and she was notified she had increased pressure surrounding her optic nerve and advised her outpatient MRI within a week. Left transverse sinus thrombosis extending to the superior internal jugular vein: Patient's presentation was cephalgia with visual disturbance appears left eyes (diplopia,blurry vision and primary gaze left eye is slightly medially deviated) --thrombosis is possible due to contraceptive. Headache is improving On MRI Brain I also felt suspicious patient has possible demylinating process seen on FLAIR but no active lesions Underlying history of sinus disease Plan: Continue heparin drip and will avoid boluses and will go up to higher PTT goal of 40-79. Then down the line will transition into direct oral anticoagulant (Pradaxa). Pending rest of hypercoagulable work-up. 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 I am concerned about sclerosis. Recommend further investigation down the line such as lumbar puncture, MRI thoracic spine and mimickers of D-mine disease Her contraceptive is stopped. She was notified to avoid any estrogen contraceptives since it can increase risk of hypercoagulable state. ICU attending requested her to be transferred to a tertiary center to have surgery aide/Neurosurgeon at site in case she has any complication and avoid any delay in care. She was accepted to [facility] and pending bed availability. Patient was started on Dexamethasone by ICU team and from neurological perspective she does not need it. Will defer the rest of the medical management to primary and other specialist Pending transfer to [facility] for escalation of care. I discussed in length with patient, her mother who is at bedside and ICU team. Time with Patient: Less than 30
[2024-05-31 13:21] VITALS: BP 114/66; PULSE 89; RESP 15
--- NOTE | 2024-05-31 14:26 | P.PN ---
Subjective Progress Note Date: 05/31/24 Principal diagnosis: Acute sigmoid sinus thrombosis extending into the left superior internal jugular vein Patient is a 24-year-old white female without known past medical history other than seasonal allergies. She does take oral contraceptives at home. Approximately 10 days ago, she developed a severe headache, rated 10/10, radiating up left lateral neck to bilateral temporal region. Initially presented to [facility] and diagnosed with migraine. Initial symptoms including headache, double vision, and blurry vision. She denies any history of migraines. There is some associated left-sided neck pain. She has been seen outpatient since then by her PCP and an opthamalogist who recommended brain MRI to be done on an outpatient basis. Patient was worried that the symptoms persisted, and came to our Emergency Department for evaluation 02/24/24. Patient has been evaluated by medical neurology. Underwent CT angio of the brain demonstrating left transverse sinus thrombosis extending to the superior internal jugular vein is thought to be caused by compression of the internal jugular vein from the left transverse process of C1 and styloid process. No kevin dence of dissection of the cervical internal carotid arteries or vertebral arteries or any evidence of significant stenosis of the carotid bifurcations. No evidence of intracranial high-grade stenosis or intercranial aneurysm. A brain MRI demonstrating left sigmoid sinus thrombosis extending to the left proximal left jugular vein. Bilateral orbits unremarkable. I did speak with Dr. William Spivey who recommended transfer to the intensive care unit for close neurological monitoring. Apparently, Dr. Hobson, neuro-interventionalists from outside tertiary care facility, felt patient appropriate for medical management and IV anticoagulation. Currently, transferred to the intensive care unit room 260. She is awake and alert. She reports some intermittent nausea. Also reporting continued double vision/blurred vision. Left eye is inverted medially. Her headaches is resolved, but reports some left posterior neck pain. A hypercoagulable workup is pending. Denies personal or familial history of blood clots. IV heparin is being started per protocol. Vital signs are stable. She is going to require close neurological monitoring. Recommend transfer to tertiary care center if any neurological deterioration. Patient was evaluated today on 05/31/2024, headache seems to be last, 2 out of 10, responding to Tylenol. Continues to have some vague neck pain denies any other neurological symptoms except for diplopia patient is being considered for transfer to [facility], waiting for bed availability. Meantime patient remains on antibiotics, heparin, she is also on Decadron. CBC showed leukocytosis with WBC count of 17.8 hemoglobin is 11.5 basic metabolic profile is normal PTT is therapeutic at 66 Objective - Vital Signs Vital signs: Vital Signs Temp 98.3 F 05/31/24 08:00 Pulse 89 05/31/24 13:00 Resp 15 05/31/24 13:00 BP 114/66 05/31/24 13:00 Pulse Ox 95 05/31/24 13:00 FiO2 Intake & Output 05/30/24 05/31/24 05/31/24 18:59 06:59 18:59 Intake Total 3525.571 1286.663 899.521 Balance 3525.571 1286.663 899.521 Weight 85.3 kg Intake: IV 1450 1175 680 0.9% @ KVO 30 Cefepime 2 gm In Sodium 200 100 100 Chloride 0.9% 100 ml @ 25 mls/hr IVPB Q8HR ALEX Rx# :[id number] Sodium Chloride 0.9% 1, 750 825 300 000 ml @ 10 mls/hr IV . Q24H ALEX Rx#:[id number] Vancomycin 1,250 mg In 500 250 250 Sodium Chloride 0.9% 250 ml @ 125 mls/hr IVPB Q8HR ALEX Rx#:[id number] Intake, IV Titration 75.571 111.663 219.521 Amount Heparin Sod,Pork in 0.45% 75.571 111.663 219.521 NaCl 25,000 unit In 0.45 % NaCl 1 250ml.bag @ 12 UNITS/KG/HR 9.253 mls/hr IV .Q24H ALEX Rx#: [id number] Oral 2000 Other: Voiding Method Toilet Toilet Toilet # Voids 1 2 - Exam GENERAL EXAM: Alert, 24-year-old white female, pleasant in no distress. HEAD: Normocephalic and atraumatic EYES: Left eye is deviated medially. Diplopia persists. NOSE: Clear with pink turbinates. THROAT: No erythema or exudates. NECK: No masses, no JVD. CHEST: No chest wall deformity. LUNGS: Equal air entry with no crackles, wheeze, rhonchi or dullness. No conversational dyspnea or accessory muscle use.. CVS: S1 and S2 normal with no audible murmur, regular rhythm. No extra heart sounds ABDOMEN: No hepatosplenomegaly, active bowel sounds, no guarding or rigidity. SKIN: No rashes CENTRAL NERVOUS SYSTEM: Alert and oriented x 3 no gross focal deficit EXTREMITIES: There is no peripheral edema, clubbing, or cyanosis. Peripheral pulses are intact. - Labs CBC & Chem 7: 05/31/24 06:10 05/31/24 06:10 Labs: Abnormal Lab Results - Last 24 Hours (Table) 05/30/24 05/31/24 05/31/24 Range/Units 20:06 01:22 06:10 WBC 17.8 H (3.8-10.6) k/uL APTT 42.3 H 58.0 H (22.0-30.0) sec Chloride (98-107) mmol/L 05/31/24 05/31/24 Range/Units 06:10 07:43 WBC (3.8-10.6) k/uL APTT 66.0 H (22.0-30.0) sec Chloride 110 H (98-107) mmol/L Assessment and Plan Assessment: Impression: Left transverse sinus thrombosis extending into the superior left internal jugular vein likely secondary to chronic sinusitis Cephalgia, secondary to above Vision disturbances, esotropia left eye Recommendation: Continue present supportive care measures including antibiotics steroids and heparin Patient will be transferred to [facility] today once a bed is available Will continue to follow in the ICU in the meantime until the patient is transferred. Updated the patient and her mother on her condition at bedside today. Time with Patient: Less than 30
[2024-05-31] MEDS ORDERED: VANCOMYCIN TROUGH DUE 1 EACH MISC MISCELLANE ONE (15:00)
--- NOTE | 2024-05-31 19:20 | P.PN ---
Subjective Progress Note Date: 05/31/24 No acute events. Headache improving, States blurred vision is persisting. Awaiting transfer to [facility] for neurosurgery evaluation Objective - Vital Signs Vital signs: Vital Signs Temp 98.3 F 05/31/24 08:00 Pulse 93 05/31/24 12:00 Resp 14 05/31/24 12:00 BP 107/62 05/31/24 12:00 Pulse Ox 97 05/31/24 12:00 FiO2 Intake & Output 05/30/24 05/31/24 05/31/24 18:59 06:59 18:59 Intake Total 3525.571 1286.663 670 Balance 3525.571 1286.663 670 Weight 85.3 kg Intake: IV 1450 1175 670 0.9% @ KVO 20 Cefepime 2 gm In Sodium 200 100 100 Chloride 0.9% 100 ml @ 25 mls/hr IVPB Q8HR ALEX Rx# :[id number] Sodium Chloride 0.9% 1, 750 825 300 000 ml @ 10 mls/hr IV . Q24H ALEX Rx#:[id number] Vancomycin 1,250 mg In 500 250 250 Sodium Chloride 0.9% 250 ml @ 125 mls/hr IVPB Q8HR ALEX Rx#:[id number] Intake, IV Titration 75.571 111.663 Amount Heparin Sod,Pork in 0.45% 75.571 111.663 NaCl 25,000 unit In 0.45 % NaCl 1 250ml.bag @ 12 UNITS/KG/HR 9.253 mls/hr IV .Q24H ALEX Rx#: [id number] Oral 2000 Other: Voiding Method Toilet Toilet Toilet # Voids 1 2 - Constitutional General appearance: Present: no acute distress - EENT Eyes: Present: anicteric sclerae ENT: Present: hearing grossly normal - Respiratory Details: breathing is even and unlabored - Cardiovascular Details: skin warm and dry - Musculoskeletal Musculoskeletal: Present: strength equal bilaterally - Psychiatric Psychiatric: Present: A&O x's 3 - Labs CBC & Chem 7: 05/31/24 06:10 05/31/24 06:10 Labs: Abnormal Lab Results - Last 24 Hours (Table) 05/30/24 05/31/24 05/31/24 Range/Units 20:06 01:22 06:10 WBC 17.8 H (3.8-10.6) k/uL APTT 42.3 H 58.0 H (22.0-30.0) sec Chloride (98-107) mmol/L 05/31/24 05/31/24 Range/Units 06:10 07:43 WBC (3.8-10.6) k/uL APTT 66.0 H (22.0-30.0) sec Chloride 110 H (98-107) mmol/L Assessment and Plan (1) Double vision with both eyes open Status: Acute Priority: High Code(s): H53.2 - DIPLOPIA SNOMED Code(s): 919171520 (2) Thrombosis of left internal jugular vein Status: Acute Priority: High Code(s): I82.C12 - ACUTE EMBOLISM AND THROMBOSIS OF LEFT INTERNAL JUGULAR VEIN SNOMED Code(s): 257661816 Plan: Left sinus thrombus: Presented to the emergency room with headache and visual disturbances that began on 05/21. -MRI brain/orbits showed left sigmoid sinus thrombus extending to the proximal left jugular vein. No acute intracranial processes otherwise apparent. CT angio head and neck showed left transverse sinus thrombus extending to the superior internal jugular vein. No evidence of dissection of the cervical internal carotid arteries or vertebral arteries or any evidence of significant stenosis of the carotid bifurcations. No evidence of intracranial high-grade stenosis or intracranial aneurysm. -Patient has been started on heparin drip. Nueurology following -Appears to be a provoked thrombus due to oral contraceptive use. Recommend stopping BALWINDER and to f/u with [employer] for other contraceptive options -Recommend 6 months of anticoagulation. Once no procedures/interventions planned pt can be transitioned to [facility]. [facility] case management consulted to obtain prior auth -Hypercoaguable workup ordered -CT CAP showing no acute findings -Will schedule clinic f/u for further anticoagulation management and f/u on hypercoaguable labs Discussed plan of care with pt, she was agreeable to the same Spoke with neurology regarding case, cardiology recommending Pradaxa vs Eliquis. We would be okay with either eliquis or pradaxa for AC. Defer decision to neuro/cards Patient being transferred to [facility] for neurosurgery evaluation attests: I have seen and examined patient, performed H&P, developed impression and plan of care. Discussed with dictator. Agree with do cumentation, dictated as a scribe
--- NOTE | 2024-06-01 13:57 | P.PN ---
Subjective Progress Note Date: 05/31/24 Principal diagnosis: Reason for follow-up is sinusitis leukocytosis Patient is a 24-year-old female with no significant past medical history presenting to the hospital 5 days ago complaining of headache and double vision, patient did have MRI with evidence of left sigmoid sinus thrombus extending to the proximal left jugular vein also showed pansinusitis with acute left maxillary and sphenoid sinusitis. On today's evaluation that is 05/31/2024, Patient is afebrile this morning patient denies having any chest pain shortness of breath or cough, the patient is breathing comfortably and currently on room air, patient denies any abdominal pain no diarrhea no nausea no vomiting, mention overall headache has decreased in intensity still. Patient white count 17.8, creatinine 0.54 having some double vision Objective - Vital Signs Vital signs: Vital Signs Temp 98.3 F 05/31/24 08:00 Pulse 89 05/31/24 10:00 Resp 21 05/31/24 10:00 BP 124/69 05/31/24 10:00 Pulse Ox 97 05/31/24 10:00 FiO2 Intake & Output 05/30/24 05/31/24 05/31/24 18:59 06:59 18:59 Intake Total 3525.571 1286.663 650 Balance 3525.571 1286.663 650 Weight 85.3 kg Intake: IV 1450 1175 650 Cefepime 2 gm In Sodium 200 100 100 Chloride 0.9% 100 ml @ 25 mls/hr IVPB Q8HR ALEX Rx# :[id number] Sodium Chloride 0.9% 1, 750 825 300 000 ml @ 75 mls/hr IV . [id number] ALEX Rx#:[id number] Vancomycin 1,250 mg In 500 250 250 Sodium Chloride 0.9% 250 ml @ 125 mls/hr IVPB Q8HR ALEX Rx#:[id number] Intake, IV Titration 75.571 111.663 Amount Heparin Sod,Pork in 0.45% 75.571 111.663 NaCl 25,000 unit In 0.45 % NaCl 1 250ml.bag @ 12 UNITS/KG/HR 9.253 mls/hr IV .Q24H ALEX Rx#: [id number] Oral 2000 Other: Voiding Method Toilet Toilet Toilet # Voids 1 2 - Exam GENERAL DESCRIPTION: Young female lying in bed in no distress RESPIRATORY SYSTEM: Unlabored breathing , decreased breath sounds at bases HEART: S1 S2 regular rate and rhythm , ABDOMEN: Soft , no tenderness EXTREMITIES: No edema feet - Labs CBC & Chem 7: 05/31/24 06:10 05/31/24 06:10 Labs: Abnormal Lab Results - Last 24 Hours (Table) 05/30/24 05/30/24 05/31/24 Range/Units 11:25 20:06 01:22 WBC (3.8-10.6) k/uL APTT 37.5 H 42.3 H 58.0 H (22.0-30.0) sec Chloride (98-107) mmol/L 05/31/24 05/31/24 05/31/24 Range/Units 06:10 06:10 07:43 WBC 17.8 H (3.8-10.6) k/uL APTT 66.0 H (22.0-30.0) sec Chloride 110 H (98-107) mmol/L Assessment and Plan (1) Sinusitis Status: Acute Code(s): J32.9 - CHRONIC SINUSITIS, UNSPECIFIED SNOMED Code(s): 42416236 (2) Leukocytosis Status: Acute Code(s): D72.829 - ELEVATED WHITE BLOOD CELL COUNT, UNSPECIFIED SNOMED Code(s): 527620739 Plan: 1patient presented to hospital with headache double vision and this patient has been diagnosed with the left sigmoid sinus thrombosis extending to the proximal left jugular vein MRI also shows evidence of pansinusitis with acute left maxillary sinusitis did have elevated white count with a question of possible incidental finding as the patient did not have significant sinus symptoms versus possibly acute disease. 2blood culture and inflammatory markers currently pending 3patient to continue with vancomycin and cefepime pending transfer to tertiary care, family at the bedside questions answered Dictation was produced using [employer] dictation software. please excuse any grammatical, word or spelling errors. Time with Patient: Less than 30
[2024-06-02 12:08] LABS: Von Willebrand Factor Antigen 211 % (52-214)
[2024-06-02 13:04] LABS: Protein C Antigen 97 % (72-160)
== END 2024-05-31 13:55 | disposition short-term general hospital (02) | DRG 92 ==
LOC: EC 16:28 → 6NMEDSUR 22:04 → 2SICU 05-29 23:38 → OBSVTOIN 05-30 01:29
PROVIDERS: ADMIT Hospitalist; ATTEND Hospitalist
DX: G08 Intracranial and intraspinal phlebitis and thrombophlebitis (principal); I82.C12 Acute embolism and thrombosis of left internal jugular vein; H49.02 Third [oculomotor] nerve palsy, left eye; J01.40 Acute pansinusitis, unspecified; G43.909 Migraine, unspecified, not intractable, without status migrainosus; H50.012 Monocular esotropia, left eye; Z79.899 Other long term (current) drug therapy
CPT/HCPCS: 70450; 70496; 70498; 70543; 70553; 71260; 72156; 74177; 80048; 81025; 81240; 81241; 82565; 82607; 83090; 84443; 85027; 85246; 85300; 85301; 85302; 85303; 85305; 85306; 85379; 85384; 85610; 85613; 85652; 85730; 86140; 86147; 86225; 87040; 96360; 99285

== ENCOUNTER → 2025-02-05 | Outpatient (CLI) | payer BC ==
--- NOTE | 2025-02-05 17:48 | MR ---
EXAMINATION TYPE: MR venography head wo con DATE OF EXAM: 02/05/2025 2:57 PM COMPARISON: CT 05/29/2024. 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 IV Contrast: mL (None, if empty) FINDINGS: The left transverse sinus and sigmoid sinus appear patent. Visualization of the internal jugular vein extracranial portion is not appreciated. Multiple collaterals are visualized near the skull base.. IMPRESSION: Improved blood flow is thought to be seen in the left transverse and sigmoid sinus. Poor visualizatio n of the left internal jugular vein with collaterals noted near the skull base. [facility], , 02/05/2025 5:45 PM
== END | disposition home or self-care (01) ==
LOC: RADMRIMAIN 14:13
PROVIDERS: ATTEND Psychiatry & Neurology Vascular Neurology
DX: I67.6 Nonpyogenic thrombosis of intracranial venous system (principal)
CPT/HCPCS: 70544